=== PATIENT | female | born 1975 | race African-American/Black ===

== ENCOUNTER 2017-08-03 06:49 | Inpatient (IN) | payer OTHER ==
[~2017-08-03] VITALS: Ht 167.6 cm; Wt 87.1 kg
[2017-08-03] VITALS (17 sets, daily range): BP systolic 118–149; BP diastolic 72–100
[2017-08-03] MEDS ORDERED: ceFAZolin sod 2 GM in D5W 110 ML IVPB ONE (07:00)
[2017-08-03] MEDS ORDERED: ceFAZolin 2gm/50ml Premix 50 ML IVPB ONE (07:00)
[2017-08-03] MEDS ORDERED: Surgicel 4in x 8in TOPIC ONE (07:04)
[2017-08-03] MEDS ORDERED: Thrombin 5000 units TOPIC ONE (07:04)
[2017-08-03] MEDS ORDERED: Bupivacaine w/Epi 0.5% 30ml Vial INJ ONE (07:05)
[2017-08-03] MEDS ORDERED: Gelfoam Absorbable 1gm powder pkt TOPIC ONE (07:05)
[2017-08-03] MEDS ORDERED: Bacitracin 50000 Units Vial ONE (07:05)
[2017-08-03] MEDS ORDERED: Thrombin 5000 units spray kit TOPIC ONE (07:05)
[2017-08-03] MEDS ORDERED: NKM (07:51)
[2017-08-03] MEDS ORDERED: Zemuron 50mg/5ml Inj IV ONE (08:00)
[2017-08-03] MEDS ORDERED: NS Irrig 1000ml ONE (08:00)
[2017-08-03] MEDS ORDERED: fentaNYL 100 mcg/2 mL IV ONE (08:00)
[2017-08-03] MEDS ORDERED: Midazolam 2mg/2ml Inj ONE (08:00)
[2017-08-03] MEDS ORDERED: Esmolol 100mg/10ml Inj ONE (08:00)
[2017-08-03] MEDS ORDERED: Sodium Chloride 10ml vial INJ ONE (08:00)
[2017-08-03] MEDS ORDERED: Propofol 1,000mg/ 100ml btl IV ONE (08:00)
[2017-08-03] MEDS ORDERED: Sterile Water Irrig 1000ml IRRIG ONE (08:00)
[2017-08-03] MEDS ORDERED: LR 1000ml ONE (08:00)
[2017-08-03] MEDS ORDERED: Metoprolol 5mg/5ml Inj ONE (08:00)
[2017-08-03] MEDS ORDERED: Labetalol 5mg/ml 20ml vial IV ONE (08:00)
[2017-08-03] MEDS ORDERED: Lidocaine 1% MPF 10mg/ml 5ml ONE (08:00)
[2017-08-03] MEDS ORDERED: Vancomycin 1gm inj IVPB ONE (09:48)
[2017-08-03] MEDS ORDERED: LR 1000ml 1,000 ML IVLG SCH (10:51)
--- NOTE | 2017-08-03 10:58 | Anethesia Preoperative Eval ---
Anesthesia Pre-op PMH/ROS General Date of Evaluation: Aug 03, 2017 Time of Evaluation: 08:00 Anesthesiologist: Parish ASA Score: ASA 1 Mallampati Score Class I : Soft palate, uvula, fauces, pillars visible Class II: Soft palate, uvula, fauces visible Class III: Soft palate, base of uvula visible Class IV: Only hard plate visible Mallampati Classification: Class II Surgeon: Shannan Diagnosis: Herniated cervical disc, radiculopathy Surgical Procedure: ACDF C5-6, C6-7 Family History: no anesthesia problems Allergies: Coded Allergies: ASPIRIN (Verified Allergy, Unknown, 09/28/13) Medications: see eMAR Past Medical History Cardiovascular: Denies: HTN, CAD, CO, valve dz, arrhythmia, other Pulmonary: Denies: asthma, COPD, KELIN, other Gastrointestinal/Genitourinary: Denies: GERD, CRI, ESRD, other Neurologic/Psychiatric: Denies: dementia, CVA, depression/anxiety, TIA, other Endocrine: Denies: DM, hypothyroidism, steroids, other HEENT: Denies: cataract (L), cataract (R), glaucoma, [place] (L), [place] (R), other Hematology/Immune: Denies: anemia, DVT, bleeding disorder, other Musculoskeletal/Integumentary: Denies: OA, RA, DJD, DDD, edema, other PMH Narrative: Denies significant PMH PSxH Narrative: ALESSANDRO, eye surgery, breast reduction Anesthesia Pre-op Phys. Exam Physician Exam Last Vital Signs Date Time Temp Pulse Resp B/P (MAP) Pulse Ox O2 Delivery O2 Flow Rate FiO2 08/03/17 07:51 98.2 80 18 131/86 96 Room Air Constitutional: NAD Neurologic: CN 2-12 intact Cardiovascular: RRR, no M/R/G Respiratory: CTA Gastrointestinal: S/NT/ND Airway Exam Mallampati Score: Class II MO: full ROM: full Teeth: intact Anesthesia Pre-op A/P Labs WNL: Urine Test Test 08/03/17 07:10 Urine HCG, Qualitative Negative Studies Pre-op Studies: EKG - NSR Risk Assessment & Plan Assessment: Healthy female for ACDF vs disc replacement C5-6, C6-7 Plan: GETA,. [place] scope intubation, SedLine monitor Status Change Before Surgery: No Pre-Antibiotics Drug: Ancef Given Within 1 Hr of Incision: Yes Time Given: 08:30 VIC GONZALEZ M.D. Aug 03, 2017 10:58
--- NOTE | 2017-08-03 10:59 | Immediate Post-Op Evaluation ---
Immediate Post-Op Evalulation Immediate Post-Op Evalulation Procedure: ACDF C5-6, C6-7 Date of Evaluation: Aug 03, 2017 Time of Evaluation: 12:15 IV Fluids: 1550 Estimated Blood Loss: 130 Urinary Output: 350 Blood Pressure Systolic: 140 Blood Pressure Diastolic: 90 Pulse Rate: 100 Respiratory Rate: 20 O2 Sat by Pulse Oximetry: 100 Pain Score (1-10): 3 Nausea: No Vomiting: No Complications No complication Patient Status: awake, patent, extubated, none Hydration Status: adequate Drug: Ancef Given Within 1 Hr of Incision: Yes Time Given: 08:30 VIC GONZALEZ M.D. Aug 03, 2017 10:59
[2017-08-03] MEDS ORDERED: Hydromorphone 0.5mg/0.5ml inj IVP PRN (11:00)
[2017-08-03] MEDS ORDERED: LORazepam Inj 2mg/ml 1ml IV PRN (11:00)
[2017-08-03] MEDS ORDERED: DiphenhydrAMINE 50mg/ml Inj IVP PRN (11:00)
[2017-08-03] MEDS ORDERED: Meperidine 25mg/0.5ml Inj (FOR RIGORS ONLY) IV PRN (11:00)
[2017-08-03] MEDS ORDERED: traMADol 50mg tab ORAL PRN (11:45)
--- NOTE | 2017-08-03 11:53 | Pre-Procedure Note/Attestation ---
Pre-Procedure Note/Attestation Complete Prior to Procedure Procedure Narrative: c567 acdf vs, adr, vs hybrid Indications for Procedure Pre-Operative Diagnosis: c56 discopathy, c67 HNP Attestation I attest that I discussed the nature of the procedure; its benefits; risks and complications; and alternatives (and the risks and benefits of such alternatives ), prior to the procedure, with the patient (or the patient's legal dental sales representative). I attest that, if there was a reasonable possibility of needing a blood transfusion, the patient (or the patient's legal dental sales representative) was given the [facility] standardized written summary, pursuant to the Ace Julian Blood Safety Act ([place] Health and Safety Code # 1645, as amended). I attest that I re-evaluated the patient just prior to the surgery and that there has been no change in the patient's H&P, except as documented below: SUSHILA CONLEY Aug 03, 2017 11:53
--- NOTE | 2017-08-03 11:55 | Brief Operative Note ---
Immediate Post Operative Note Operative Note Pre-op Diagnosis: c56 discopathy, c67 HNP Procedure: ACDF c5-7. partial corpectomy c7 Post-op Diagnosis: same as pre-op Findings: consistent w/pre-op dx studies Surgeon: feliciano Conservation Planner: martir Anesthesiologist: alyssa Anesthesia: general Specimen: none Complications: none Condition: stable Fluids: 1500 Estimated Blood Loss: volume - 130 Drains: none Implant(s) used?: Yes - cervical plate and pook (alphatek) SUSHILA CONLEY Aug 03, 2017 11:54
[2017-08-03] MEDS ORDERED: Naloxone 0.4mg/ml Inj IVP PRN (12:16)
[2017-08-03] MEDS ORDERED: LR 1000ml 1,000 ML IV SCH (12:51)
--- NOTE | 2017-08-03 13:35 | Diagnostic Imaging Report ---
Indication: PAIN, intraoperative Technique: Digital intraoperative images Comparison: None Findings: Initial image demonstrates a needle overlying the C6 vertebral body. Subsequent images demonstrate surgical tool projected at the expected level of the C6-7 disc. Subsequent images demonstrate anterior fusion with placement of disc spacers from C5-C7. Impression: Intraoperative imaging, as described
[2017-08-03] MEDS ORDERED: Norco 7.5mg/325mg tab ORAL PRN ×2 (14:30)
[2017-08-03] MEDS ORDERED: HYDROmorphone 1mg/ml Carpuject SUBQ PRN (14:30)
[2017-08-03] MEDS ORDERED: Metoclopramide 10mg/2ml Inj IVP PRN (14:30)
[2017-08-03] MEDS ORDERED: Norco 5mg/325mg tab ORAL PRN (14:30)
[2017-08-03] MEDS ORDERED: Milk of Magnesia 30ml Ud ORAL PRN (14:30)
[2017-08-03] MEDS: D5 1/2NS 1,000 ML IV SCH (14:41)
[2017-08-03] MEDS ORDERED: LORazepam 0.5mg tab ORAL PRN ×3 (16:00)
[2017-08-03] MEDS: ceFAZolin sod 1 GM in D5W 55 ML IV SCH (17:05)
[2017-08-03] MEDS: Docusate 100mg cap ORAL SCH (17:30)
[2017-08-03] MEDS ORDERED: D5 1/2NS 1000ml IV ONE (17:56)
[2017-08-03] MEDS: HYDROmorphone 1mg/ml Carpuject SUBQ PRN (20:04)
[2017-08-04] VITALS: BP 141/96
[2017-08-04] MEDS: ceFAZolin sod 1 GM in D5W 55 ML IV SCH ×2 (00:17→08:19)
[2017-08-04] MEDS: D5 1/2NS 1,000 ML IV SCH ×2 (00:17→11:32)
[2017-08-04] MEDS: HYDROmorphone 1mg/ml Carpuject SUBQ PRN ×7 (00:18→23:50)
[2017-08-04 04:00] VITALS: BP 141/93
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
[2017-08-04 08:00] VITALS: BP 131/83
[2017-08-04] MEDS: Docusate 100mg cap ORAL SCH ×2 (08:19→17:34)
--- NOTE | 2017-08-04 08:19 | 48 Hour Post Anesthesia Eval ---
Post Anesthesia Evaluation Procedure: ACDF C5-6, C6-7 Date of Evaluation: Aug 04, 2017 Blood Pressure Systolic: 141 0: 93 Pulse Rate: 94 Respiratory Rate: 18 Temperature (Fahrenheit): 98.5 O2 Sat by Pulse Oximetry: 94 Airway: patent Nausea: No Vomiting: No Pain Intensity: 2 Hydration Status: adequate Cardiopulmonary Status: at baseline Mental Status/LOC: patient returned to baseline Post-Anesthesia Complications: 0 Follow-up care needed: N/A - further care as per primary team DEUCE CABRALES M.D. Aug 04, 2017 08:19
--- NOTE | 2017-08-04 08:44 | Orthopedic Spine Progress Note ---
Ortho Spine - Progress Note Subjective Symptoms: c/o post-op neck pain, improved Objective Vital Signs: Last 24 Hour Vital Signs Date Time Temp Pulse Resp B/P (MAP) Pulse Ox O2 Delivery O2 Flow Rate FiO2 08/04/17 08:19 94 18 94 08/04/17 08:00 98.4 103 14 131/83 99 Room Air 08/04/17 04:00 98.5 94 18 141/93 94 Room Air 08/04/17 00:00 98.1 96 18 141/96 95 Room Air 08/03/17 20:00 98.0 91 19 149/100 100 Nasal Cannula 2.0 08/03/17 17:46 90 19 124/87 98 Nasal Cannula 3.0 08/03/17 16:46 97.9 90 18 130/72 97 Nasal Cannula 3.0 08/03/17 15:46 93 18 123/72 96 Nasal Cannula 3.0 08/03/17 15:40 97.9 08/03/17 14:46 96 18 133/86 97 Nasal Cannula 3.0 08/03/17 13:30 97.4 96 18 131/78 97 Nasal Cannula 3.0 08/03/17 13:22 97.4 93 16 121/83 100 Nasal Cannula 3.0 08/03/17 13:10 92 17 121/83 100 Nasal Cannula 3.0 08/03/17 13:00 92 20 135/86 100 Nasal Cannula 3.0 08/03/17 12:50 91 15 126/78 100 Nasal Cannula 3.0 08/03/17 12:43 97.4 08/03/17 12:43 97.4 08/03/17 12:40 92 18 118/75 100 Nasal Cannula 3.0 08/03/17 12:30 94 14 119/78 100 Nasal Cannula 3.0 08/03/17 12:20 90 18 125/72 100 Nasal Cannula 3.0 08/03/17 12:10 92 17 128/78 100 Simple Mask 6.0 08/03/17 12:08 100 20 100 08/03/17 12:05 100 16 128/80 100 Simple Mask 6.0 08/03/17 12:00 97.0 101 15 129/83 100 Simple Mask 6.0 Wound: intact Drains: none Neuro Status: normal Assessment Procedure Performed: ACDF c5-7. partial corpectomy c7 Plan Plan: PT, pain management, discharge plan SUSHILA CONLEY Aug 04, 2017 08:44
--- NOTE | 2017-08-04 09:15 | Operative Note - Dictated ---
DATE OF OPERATION: 08/03/2017 SURGEON: Chris Campbell M.D. HAND BULLDOZER: Severiano Nice M.D. ANESTHESIOLOGIST: Ace Lugo M.D. ANESTHESIA TYPE: General endotracheal anesthesia. PREOPERATIVE DIAGNOSES: 1. Diskopathy C5-C6. 2. Cervical disk extrusion with right upper extremity radiculopathy C6-C7. POSTOPERATIVE DIAGNOSES: 1. Diskopathy C5-C6. 2. Cervical disk extrusion with right upper extremity radiculopathy C6-C7. PROCEDURES: 1. Anterior cervical diskectomy and fusion of C5, C6, and C7. 2. Partial corpectomy of superior portion of C7. 3. PEEK interbody devices for fusion purposes. 4. Use of local autograft and allograft (Bacterin bone). 5. Anterior instrumentation using Alphatec plate. 6. Use of fluoroscopy. 7. Use of operating microscope. 8. Neurodiagnostic monitoring. ESTIMATED BLOOD LOSS: 150 mL. COMPLICATIONS: None. Findings: Extruded disk fragments, right side, C6-C7. This necessitated partial corpectomy of the superior portion of C7, which ultimately did not allow for safe placement of an artificial disk. After a trial was placed, there was notable toggle and instability and potential loosening of the disk replacement. Indication: The patient is a very pleasant woman with fairly significant and intractable pain radiating to right upper extremity. After having failed conservative care, surgical intervention was recommended. The patient elected to proceed. Risk Note: The patient was explained in detail the risks and benefits of surgery to include, but not be limited to those of bleeding, infection, damage to nerves, vessels, tendons, anesthetic risk, allergic reaction, aspiration, possibly , possible risk of hardware failure, and possible risk of pseudoarthrosis were discussed. The patient understood and wished to proceed. Operative Procedure In Detail: The patient was taken to the operative suite. After general endotracheal anesthesia was obtained, Oneal catheter was placed. She was positioned supine on to a radiolucent table. The neck was prepped and draped in usual sterile fashion. At this point, under fluoroscopic guidance, C6 level was identified. The skin was marked and infiltrated with Marcaine with epinephrine. Incision was carried down transversely at the C6 level. It was taken down through subcutaneous and the platysma, which was split perpendicular to the fibers. A blunt dissection was carried down from the medial aspect of the sternocleidomastoid along to the prevertebral fascia. Extensive scarring was encountered. The C6-C7 disk space was identified and needle was placed. A self-retaining retractors were put in place. [place] posts were applied. At this point, the disk was incised and a wide and radical diskectomy was performed at C6-C7 using combination of curette, Kerrison, and pituitaries. The dissection was carried out all the way to the posterior longitudinal ligament, which was removed in a piecemeal fashion. Extensive scarring was encountered on the right side consistent with chronic herniation. The microset curette was then delivered under and posterior to the vertebral body and multiple passes were made to remove the disk extrusion. As this could not be removed, the partial corpectomy of the superior end plate, right side C7 was performed and the disk extrusion was identified and removed in a piecemeal fashion. At this point, endplate preparation was achieved. The decision was made to trial the interspace for a artificial disk. Multiple passes were attempted, but could not have safe and reliable placement of the artificial disk. Due to the small strip of corpectomy, there was toggle in the trial, which made it risky for loosening down the line. At this point, the decision was made to convert to a fusion at this level. A 5 mm in height small cage footprint was chosen. It was centrally packed with Bacterin bone and the interbody fusion device was applied. Additional Bacterin bone as well as local autograft bone from the corpectomy was packed into the periphery on both the right and the left. The [place] post was removed from C7, applied into C5, and in a similar fashion widened radical diskectomy was performed. Please note that the C5-C6 level was more scarified and the disk was highly deteriorated. Therefore, a high-speed drill was used to perform partial corpectomies of the inferior portion of C5 and superior portion of C6. The posterior osteophytes were also drilled out. The ligamentum flavum was removed in a piecemeal fashion with Kerrison punches. Once satisfied with the decompression, a 6 mm trial was put into place and noted to have good fit. A 6 mm implant was packed with Bacterin bone and local autograft bone. The periphery was also packed with Bacterin bone. Once both fusion devices were applied, the appropriate size 28 mm plate was chosen, contoured, and applied. The central two screws were first drilled, standard self-drilling 14, and then the two cephalad screws and then the two distal screws. Screw placement was performed uneventfully. Please note that the left-sided screw was a rescue screw as it was close in proximity to the [place] post hole. Once satisfied with closure, meticulous hemostasis was achieved. Copious irrigation was performed. The platysma was repaired using 3-0 Vicryl and subcutaneous closure using 4-0 Vicryl. Dermabond was applied. Subsequently, the patient was awakened, extubated, and transferred to recovery room and able to move her upper and lower extremities. Please note, sponge and needle counts were correct. Neurodiagnostic monitoring remained stable. Chris Campbell M.D. DR: HERNAN JOB#: [id number] CC: SANDRA
[2017-08-04 12:00] VITALS: BP 114/74
[2017-08-04 16:00] VITALS: BP 129/80
[2017-08-04] MEDS ORDERED: Tubing IV Secondary IV ONE (16:23)
[2017-08-04] MEDS ORDERED: oxyCODONE 5mg IR tab ORAL ONE (18:00)
[2017-08-04 20:00] VITALS: BP 142/72
[2017-08-05] VITALS: BP 138/70
--- NOTE | 2017-08-05 01:15 | Progress Note ---
DATE: 08/04/2017 ACUTE PAIN MANAGEMENT PHYSICIAN PROGRESS NOTE Medications: Medication administration record reviewed. Medications include Tylenol, Mylanta, Cepacol, Benadryl, Colace, Dilaudid, Ativan, milk of magnesia, Reglan, Narcan, Zofran, Roxicodone, and Protonix. LABORATORY STUDIES: No interval laboratory studies. OBJECTIVE: Vital Signs: Pulse 94, afebrile, respirations 16, blood pressure 114/74, and oxygen saturation 96% on room air. I spent over sixty minutes in conversation today. I saw the patient at the bedside after discussion with the nurse RN, Jill. I discussed the case with the surgeon, Dr. Campbell. The patient has been doing quite well after her cervical spine surgery. She continues to require breakthrough Dilaudid injections fairly regularly. I did encourage her to start using the oxycodone since she has not had any nausea symptoms and has been slowly advancing her diet. She still has a considerable sore throat with swallowing, but appears non-toxic. I have asked the nurse to place more Cepacol lozenges at the bedside for topical sore throat complaints. The patient will continue advancing her diet as tolerated. I have ordered a dose of oxycodone in the dinner tonight and left a prescription for outpatient usage. I did encourage out of bed for DVT prophylaxis. Sequential compression pneumatic devices remain in place as well for mechanical DVT prophylaxis. The patient is a smoker. I did once again camp head counselor the patient to stop smoking. I encouraged aggressive use of incentive spirometer as she already admits the phlegm expectoration over the past 24 hours. The patient has been voiding urine. She denies any shortness of breath or chest pain. I will discontinue her IV fluids and Hep-Lock her IV. I will also discontinue her nasal cannula oxygen in order to encourage movement out of bed. She is voiding urine well. Since she is ambulatory, I will increase her laxative usage since she may develop significant opioid-induced constipation on significant Dilaudid and oxycodone usage over the next 24 hours. I have ordered Senokot p.o. b.i.d. Jake Almeida M.D. DR: Salena JOB#: [id number] CC:
[2017-08-05] MEDS: HYDROmorphone 1mg/ml Carpuject SUBQ PRN (03:45)
[2017-08-05 04:00] VITALS: BP 128/66
[2017-08-05] MEDS: oxyCODONE 5mg IR tab ORAL PRN ×4 (06:07→16:02)
[2017-08-05 07:59] VITALS: BP 128/80
[2017-08-05] MEDS: Docusate 100mg cap ORAL SCH (09:21)
[2017-08-05 11:48] VITALS: BP 117/70
--- NOTE | 2017-08-05 15:23 | General Progress Note ---
Assessment/Plan Assessment/Plan 1. Diskopathy C5-C6. 2. Cervical disk extrusion with right upper extremity radiculopathy C6-C7. 3. Anterior cervical diskectomy and fusion of C5, C6, and C7. 4. Partial corpectomy of superior portion of C7. PLAN 1. incentive spirometry 2. Lovenox 3. PT evaluation and therapy 4. Hydration 5. Pain management 6. discharge today Subjective Allergies: Coded Allergies: ASPIRIN (Verified Allergy, Unknown, 09/28/13) Subjective asked to follow medically Objective Last 24 Hour Vital Signs Date Time Temp Pulse Resp B/P (MAP) Pulse Ox O2 Delivery O2 Flow Rate FiO2 08/05/17 11:48 99.0 88 20 117/70 94 Nasal Cannula 2.0 08/05/17 07:59 98.5 99 20 128/80 95 Room Air 08/05/17 04:00 98.4 95 18 128/66 98 Room Air 08/05/17 00:00 98.1 100 17 138/70 96 Room Air 08/04/17 20:00 98.2 98 18 142/72 97 Room Air 08/04/17 16:00 98.1 107 16 129/80 95 Room Air Intake and Output 08/05/17 08/06/17 19:00 07:00 Intake Total 840 ml Output Total 450 ml Balance 390 ml Intake Oral 840 ml Output Urine Total 450 ml # Voids 1 Height (Feet): 5 Height (Inches): 6.00 Weight (Pounds): 192 Objective WDWN NAD clear breath sounds bilaterally without rhonchi or wheeze [id number] without MRG NABS nontender no HSM no CCE nonfocal ANDREA BARDALES Aug 05, 2017 15:23
--- NOTE | 2017-08-05 16:15 | Progress Note ---
DATE: 08/05/2017 ACUTE PAIN MANAGEMENT PHYSICIAN PROGRESS NOTE Medications: Medication administration record reviewed. Medication include Senokot, Protonix, oxycodone, Zofran, subcutaneous Dilaudid, Narcan, milk of magnesia, Ativan, Colace, Benadryl, Mylanta, and Tylenol. LABORATORY STUDIES: No interval laboratory studies. OBJECTIVE: Vital Signs: Within normal limits. Afebrile. Pulse 95, respirations 18, blood pressure 128/56, and oxygen saturation 98% on room air. I spent over 60 minutes in consultation today. I saw the patient at the bedside after discussion with the nurse RN, Low. I discussed the case with the surgeon Dr. Campbell. The patient has been ambulating in and out of bed without assistance to the restroom and around the room. She continues to wear her [place] collar, which is providing good mechanical support after her neck fusion surgery. The pain levels will be considerable and she has still been requesting frequent doses of the breakthrough subcutaneous Dilaudid. At this point, on postoperative day #2, in order to help expedite hospital discharge, I have asked the nurse to bolus her with the oxycodone instant release 10 mg tablet now which we will continue every three hours. I will discontinue the parental narcotics and I left a prescription for 50 tablets of Percocet 10/325 for outpatient usage. The patient does not appear to be anxious and shows no evidence for oversedation. I would continue the Cepacol topical lozenges for sore throat complaints. The patient does complain of radiating pain to her left greater than right shoulders. I reassured the patient that these sensations are normal after neck fusion surgery and I did encourage continued ambulation for DVT prophylaxis. The patient is afebrile and has normal vital signs. She is tolerating advancing diet albeit slowly. I did reassure the patient that the symptoms should improve and I would expect the patient to be discharged home today once cleared by the surgeon, Dr. Campbell. Romi Chacon JOB#: [id number] CC:
[2017-08-05] MEDS ORDERED: PERCOCET 10-321 EACH ORAL (16:35)
--- NOTE | 2017-08-05 17:24 | Orthopedic Spine Progress Note ---
Ortho Spine - Progress Note Subjective Symptoms: c/o post-op neck pain, improved Objective Vital Signs: Last 24 Hour Vital Signs Date Time Temp Pulse Resp B/P (MAP) Pulse Ox O2 Delivery O2 Flow Rate FiO2 08/05/17 11:48 99.0 88 20 117/70 94 08/05/17 07:59 98.5 99 20 128/80 95 Room Air 08/05/17 04:00 98.4 95 18 128/66 98 Room Air 08/05/17 00:00 98.1 100 17 138/70 96 Room Air 08/04/17 20:00 98.2 98 18 142/72 97 Room Air I&O: Intake and Output 08/05/17 08/06/17 19:00 07:00 Intake Total 840 ml Output Total 450 ml Balance 390 ml Intake Oral 840 ml Output Urine Total 450 ml # Voids 1 Wound: clean, intact Drains: none Neuro Status: normal Assessment Procedure Performed: ACDF c5-7. partial corpectomy c7 Plan Plan: PT, discharge to home SUSHILA CONLEY Aug 05, 2017 17:24
--- NOTE | 2017-08-06 09:49 | Discharge Summary ---
Discharge Summary Hospital Course Date of Admission Aug 03, 2017 at 06:49 Date of Discharge Aug 05, 2017 at 17:40 Admitting Diagnosis HPI Catarina Osuna is a 42 year old female who was admitted on Aug 03, 2017 at 06 :49 for Cervical Disc Herniation Hospital Course [id number] Discharge Discharge Disposition Patient was discharged to Home (01) Discharge Diagnoses: Missy Silverman NP Aug 06, 2017 09:49
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
== END 2017-08-05 17:40 | disposition home or self-care (01) | DRG 473 ==
LOC: SDSOVERFLO 06:49 → 3E 13:52
PROC: 0RG2070 Fusion of 2 or more Cervical Vertebral Joints with Autologous Tissue Substitute, Anterior Approach, Anterior Column, Open Approach (ICD-10-PCS; principal; 2017-08-03 08:00)
PROC: 0RG20A0 Fusion of 2 or more Cervical Vertebral Joints with Interbody Fusion Device, Anterior Approach, Anterior Column, Open Approach (ICD-10-PCS; principal; 2017-08-03 08:00)
PROC: 0RB30ZZ Excision of Cervical Vertebral Disc, Open Approach (ICD-10-PCS; principal; 2017-08-03 08:00)
DX: M50.122 Cervical disc disorder at C5-C6 level with radiculopathy (principal); G62.9 Polyneuropathy, unspecified; E66.9 Obesity, unspecified; V89.2XXS Person injured in unspecified motor-vehicle accident, traffic, sequela; F17.200 Nicotine dependence, unspecified, uncomplicated; Z88.6 Allergy status to analgesic agent; R20.9 Unspecified disturbances of skin sensation
CPT/HCPCS: 36415; 72040; 76001; 81025; 86850; 86900; 86901; 87081; 94003; 94150; J2180; J2250; J2405

== ENCOUNTER 2017-08-22 08:32 | Emergency (ER) | payer MEDICAID, OTHER ==
[~2017-08-22] VITALS: Ht 167.6 cm; Wt 86.2 kg
[~2017-08-22 08:32] MED LIST: NKM; PERCOCET 10-321 EACH ORAL
[2017-08-22] MEDS ORDERED: PERCOCET 10-321 EACH ORAL (08:54)
[2017-08-22] MEDS ORDERED: Morphine Sulfate 4mg/ml Inj IM ONE (09:00)
[2017-08-22 09:08] VITALS: BP 106/72
[2017-08-22 09:13] VITALS: BP 106/72
--- NOTE | 2017-08-22 09:42 | Emergency Room Report ---
History of Present Illness General Chief Complaint: Pain Source: Patient Present Illness HPI Is a 42-year-old female presented after increased neck pain. Patient reported having recent surgery. She stated that she had run out of pain medications. Patient reported having increased pain to her surgical area. She had been wearing a cervical collar. Patient was noted to have no fever. The patient stated that she had an appointment with her orthopedic physician in the following day. She denied any bowel or bladder dysfunction. Allergies: Coded Allergies: ASPIRIN (Verified Allergy, Unknown, 09/28/13) Patient History Past Medical History: see triage record Reviewed Nursing Documentation: PMH: Agreed, PSxH: Agreed Nursing Documentation-PMH Hx Cardiac Problems: No Hx Cancer: No Hx Gastrointestinal Problems: No Hx Neurological Problems: No Review of Systems All Other Systems: negative except mentioned in HPI Physical Exam Vital Signs Date Time Temp Pulse Resp B/P (MAP) Pulse Ox O2 Delivery O2 Flow Rate FiO2 08/22/17 08:37 97.9 95 20 106/72 96 Room Air General Appearance: well appearing, no apparent distress, alert, GCS 15, non- toxic Head: normocephalic, atraumatic ENT: hearing grossly normal, normal voice Neck: supple, limited range of motion, other - cervical anterior scar healing without erythema or exudate Respiratory: no respiratory distress, speaking full sentences Cardiovascular #1: normal peripheral pulses, regular rate, rhythm, no edema Gastrointestinal: normal bowel sounds, non tender, soft Musculoskeletal: normal inspection, back normal, digits/nails normal, gait/ station normal, no calf tenderness Neurologic: normal inspection, alert, oriented x3, responsive, rivet hole puncher III-XII nml as tested, normal gait Psychiatric: mood/affect normal Skin: normal inspection, no rash Medical Decision Making Diagnostic Impression: Primary Impression: Post-op pain ER Course Patient presented for neck pain.Differential diagnosis included vertebral artery dissection, myocardial infarction, cervical fracture, arthritis, spondylolithises. Patient's benign exam and does not appear to require any further imaging or laboratory testing at this time. The patient appears to have postsurgical pain. The patient does not have any evidence of neurologic impairment at this time. The patient is given prescription for pain medications and advised followup. She is advised to return if she began having fever numbness or weakness to her extremities or other concerns Last Vital Signs Date Time Temp Pulse Resp B/P (MAP) Pulse Ox O2 Delivery O2 Flow Rate FiO2 10/8/17 09:13 97.9 72 20 106/72 96 Room Air Status: improved Disposition: HOME, SELF-CARE Condition: Stable Scripts Oxycodone Hcl/Acetaminophen 10-325 Mg Tablet (PERCOCET 10-325 MG TABLET*) 1 Each Tablet 1 TAB ORAL Q6H Y for For Pain, #15 TAB 0 Refills Prov: Terrence Barnes 08/22/17 Referrals: NON PHYSICIAN (PCP) Patient Instructions: Cervical Fusion Terrence Barnes Aug 22, 2017 09:42
== END 2017-08-22 09:14 | disposition home or self-care (01) ==
LOC: EMR 08:50
DX: G89.18 Other acute postprocedural pain (principal); M54.2 Cervicalgia
CPT/HCPCS: 96372; 99284; J2270

== ENCOUNTER 2018-05-17 22:38 | Emergency (ER) | payer MEDICAID ==
[~2018-05-17] VITALS: Ht 167.6 cm; Wt 86.2 kg
[2018-05-17 22:50] VITALS: BP 148/77
--- NOTE | 2018-05-17 23:25 | Emergency Room Report ---
History of Present Illness General Chief Complaint: Neck pain Source: Patient Present Illness HPI Patient 42-year-old female presented after increased the patient reports having pain to her neck. This of been present since her surgery which is approximately 4 months ago. The pain was similar in quality and nature. The patient been previously taking oxycodone.cough and nasal congestion. Patient reports having symptoms for the past 2 days. Patient was having increased associated headache. Patient prior surgery on her neck and had previous episodes of neuropathy. She reports having continued neck discomfort. She denies any change in her numbness or weakness. The patient was having increased nasal congestion. She denies taking inhalers. She denies smoking. Allergies: Coded Allergies: ASPIRIN (Verified Allergy, Unknown, 09/28/13) Nut Tree (Verified Allergy, Unknown, 05/17/18) Patient History Last Menstrual Period: hysterectomy 2015 Reviewed Nursing Documentation: PMH: Agreed; PSxH: Agreed Nursing Documentation-PMH Hx Cardiac Problems: No Hx Cancer: No Hx Gastrointestinal Problems: No Hx Neurological Problems: No - 2 cervical spine fushions 07/2017 Review of Systems All Other Systems: negative except mentioned in HPI Physical Exam Vital Signs Date Time Temp Pulse Resp B/P (MAP) Pulse Ox O2 Delivery O2 Flow Rate FiO2 05/17/18 22:45 98.5 103 16 148/77 95 Room Air 98.4 General Appearance: well appearing, no apparent distress, alert, GCS 15 Head: normocephalic, atraumatic ENT: hearing grossly normal, normal voice, other - nasal congestion, left nare Neck: full range of motion, supple Respiratory: no respiratory distress, speaking full sentences Cardiovascular #1: normal inspection, normal peripheral pulses, regular rate, rhythm Gastrointestinal: normal inspection Musculoskeletal: normal inspection, back normal, no calf tenderness Neurologic: normal inspection, alert, oriented x3, responsive, risk and insurance manager III-XII nml as tested, normal gait Psychiatric: normal inspection, judgement/insight normal, mood/affect normal Skin: no rash Medical Decision Making Diagnostic Impression: Primary Impression: Chronic pain ER Course Patient presented for cough. Differential diagnosis included but was not limited to bronchitis, pneumonia, pulmonary embolism, pericarditis, asthma, foreign body. Patient has a benign exam and does not appear to require any further imaging or laboratory testing at this time. The patient is given breathing treatment as well as inhaler. The patient was given the prescription for pain medications as well as inhaler.The patient is advised to follow up with primary care doctor in 1-2 days. Patient is advised to return if any worsening condition or if any changes in status that are concerning. This report is dictated with Asterisk second miller software which may occasionally lead to discrepancies related to use of this software. Last Vital Signs Date Time Temp Pulse Resp B/P (MAP) Pulse Ox O2 Delivery O2 Flow Rate FiO2 05/17/18 22:45 98.5 103 16 148/77 95 Room Air 98.4 Status: improved Disposition: HOME, SELF-CARE Condition: Stable Scripts Albuterol Sulfate* (ALBUTEROL SULFATE MDI*) 8.5 Gm Hfa.aer.ad 2 PUFF INH Q6H, #1 EA 0 Refills Prov: Terrence Barnes MD 05/18/18 Oxycodone HCl/Acetaminophen (Percocet 10-325 mg Tablet) 1 Each Tablet 1 EACH PO EVERY 4 HOURS, #10 TAB Prov: Terrence Barnes MD 05/18/18 Azithromycin* (ZITHROMAX*) 250 Mg Tablet 250 MG ORAL DAILY, #6 TAB 0 Refills Take two tables once daily for 1 day, then one tablet once daily for 4 days. Prov: Terrence Barnes MD 05/18/18 Terrence Barnes MD May 17, 2018 23:25
[2018-05-17] MEDS ORDERED: Albuterol/Ipratropium 3ml neb HHN ONE (23:30)
[2018-05-17] MEDS ORDERED: Acetaminophen 500mg (ES) tab ORAL ONE (23:30)
[2018-05-18] MEDS ORDERED: PERCOCET 10-321 EAC1 PO (00:11)
[2018-05-18] MEDS ORDERED: ALBUTEROL SULF8.5 GM INH (00:11)
[2018-05-18] MEDS ORDERED: ZITHROMAX250 MG ORAL (00:11)
[2018-05-18] MEDS ORDERED: Oxymetazoline 0.05% Na Spray 30ml NASAL ONE (00:15)
[2018-05-18] MEDS ORDERED: Azithromycin 250mg tab ORAL ONE (00:30)
[2018-05-18 00:32] VITALS: BP 0/0
== END 2018-05-18 00:35 | disposition home or self-care (01) ==
LOC: EMR 23:24
DX: G89.29 Other chronic pain (principal); M54.2 Cervicalgia; Z98.1 Arthrodesis status; Z88.6 Allergy status to analgesic agent; Z91.018 Allergy to other foods; R05 Cough
CPT/HCPCS: 94640; 99284; Q0144; J7620

== ENCOUNTER 2018-08-09 10:31 | Inpatient (IN) | payer OTHER ==
[2018-08-09] VITALS (12 sets, daily range): BP systolic 113–131; BP diastolic 57–88
[~2018-08-09] VITALS: Ht 167.6 cm; Wt 95.7 kg
[~2018-08-09 10:31] MED LIST changes: +ALBUTEROL SULF8.5 GM INH; +Midazolam 2mg/2ml Inj ONE; +PERCOCET 10-321 EAC1 PO; +Phenylephrine 10mg/ml Vial ONE; +Propofol 200mg/20ml IV ONE; +ZITHROMAX250 MG ORAL; +ceFAZolin sod 1 GM in D5W 55 ML IVPB ONE; +fentaNYL 100 mcg/2 mL IV ONE
[2018-08-09] MEDS ORDERED: EPINEPHrine 1mg/1ml Amp ONE (10:45)
[2018-08-09] MEDS ORDERED: Bacitracin Oint 15gm Tube TOPIC ONE (10:45)
[2018-08-09] MEDS ORDERED: Vancomycin 1gm inj IVPB ONE (10:45)
[2018-08-09] MEDS ORDERED: Thrombin 5000 units spray kit TOPIC ONE (10:46)
[2018-08-09] MEDS ORDERED: Bupivacaine 0.5% Inj 30 ml vial INJ ONE (10:46)
[2018-08-09] MEDS ORDERED: Thrombin 5000 units TOPIC ONE ×2 (10:46→10:47)
[2018-08-09] MEDS ORDERED: Bacitracin 50000 Units Vial ONE (10:47)
[2018-08-09] MEDS ORDERED: Gelfoam Absorbable 1gm powder pkt TOPIC ONE (10:48)
--- NOTE | 2018-08-09 11:48 | Pre-Procedure Note/Attestation ---
Pre-Procedure Note/Attestation Complete Prior to Procedure Procedure Narrative: psf c5-7, r c56 foraminotomy Indications for Procedure Pre-Operative Diagnosis: SP c5-6 acdf with pseudoarthrosis Attestation I attest that I discussed the nature of the procedure; its benefits; risks and complications; and alternatives (and the risks and benefits of such alternatives ), prior to the procedure, with the patient (or the patient's legal floor representative). I attest that, if there was a reasonable possibility of needing a blood transfusion, the patient (or the patient's legal floor representative) was given the [facility] standardized written summary, pursuant to the [place] Blood Safety Act ([place] Health and Safety Code # 1645, as amended). I attest that I re-evaluated the patient just prior to the surgery and that there has been no change in the patient's H&P, except as documented below: Chris Campblel MD Aug 09, 2018 11:48
[2018-08-09] MEDS ORDERED: LR 1000ml ONE (12:00)
[2018-08-09] MEDS ORDERED: Labetalol 5mg/ml 20ml vial IV ONE (12:00)
[2018-08-09] MEDS ORDERED: NS Irrig 1000ml ONE (12:00)
[2018-08-09] MEDS ORDERED: Propofol 1,000mg/ 100ml btl IV ONE (12:00)
[2018-08-09] MEDS ORDERED: Sterile Water Irrig 1000ml IRRIG ONE (12:00)
[2018-08-09] MEDS ORDERED: Gelfoam Size TOPIC ONE (12:12)
[2018-08-09] MEDS ORDERED: Morphine Sulfate 10mg/ml Inj ONE (12:54)
[2018-08-09] MEDS ORDERED: Zemuron 50mg/5ml Inj IV ONE (12:57)
[2018-08-09] MEDS ORDERED: Sodium Chloride 10ml vial INJ ONE (12:57)
[2018-08-09] MEDS: Thrombin 5000 units TOPIC ONE ×2 (13:35→15:55)
[2018-08-09] MEDS ORDERED: LR 1000ml 1,000 ML IVLG SCH (13:44)
--- NOTE | 2018-08-09 13:44 | Anethesia Preoperative Eval ---
Anesthesia Pre-op PMH/ROS General Date of Evaluation: Aug 09, 2018 Time of Evaluation: 11:43 Anesthesiologist: Tosin ASA Score: ASA 2 Mallampati Score Class I : Soft palate, uvula, fauces, pillars visible Class II: Soft palate, uvula, fauces visible Class III: Soft palate, base of uvula visible Class IV: Only hard plate visible Mallampati Classification: Class II Surgeon: Shannan Diagnosis: Cervical radiculopathy Surgical Procedure: Posterior laminotomy with interbody fusion C5-C7 Anesthesia History: none Family History: no anesthesia problems Allergies: Coded Allergies: ASPIRIN (Verified Allergy, Unknown, 09/28/13) Nut Tree (Verified Allergy, Unknown, 05/17/18) Past Medical History Cardiovascular: Denies: HTN, CAD, DC, valve dz, arrhythmia, other Pulmonary: Denies: asthma, COPD, KELIN, other Gastrointestinal/Genitourinary: Reports: GERD; Denies: CRI, ESRD, other Neurologic/Psychiatric: Reports: other - chronic pain; Denies: dementia, CVA, depression/anxiety, TIA Endocrine: Denies: DM, hypothyroidism, steroids, other HEENT: Denies: cataract (L), cataract (R), glaucoma, [place] (L), [place] (R), other Hematology/Immune: Reports: anemia - mild; Denies: DVT, bleeding disorder, other Musculoskeletal/Integumentary: Denies: OA, RA, DJD, DDD, edema, other Other: obesity PMH Narrative: as above PSxH Narrative: C5-C7 ACDF hysterectomy Anesthesia Pre-op Phys. Exam Physician Exam Last Vital Signs Date Time Temp Pulse Resp B/P (MAP) Pulse Ox O2 Delivery O2 Flow Rate FiO2 08/09/18 10:59 97.2 80 20 126/81 (96) 98 97.2 08/09/18 10:49 Room Air Constitutional: NAD Neurologic: CN 2-12 intact Cardiovascular: RRR, no M/R/G Respiratory: CTA Gastrointestinal: S/NT/ND Airway Exam Mallampati Score: Class II MO: full Neck: stiff ROM: limited Teeth: intact Dentures: no upper, no lower Anesthesia Pre-op A/P Labs see chart Studies Pre-op Studies: EKG - NSR Risk Assessment & Plan Assessment: ASA 2 Plan: GA with ETT prone position, neuromonitoring Status Change Before Surgery: No Pre-Antibiotics Drug: Ancef 2g. Given Within 1 Hr of Incision: Yes Time Given: 13:10 Paco Leahy MD Aug 09, 2018 13:44
[2018-08-09] MEDS ORDERED: fentaNYL 100 mcg/2 mL IV PRN (13:45)
[2018-08-09] MEDS ORDERED: Midazolam 2mg/2ml Inj IVP PRN (13:45)
[2018-08-09] MEDS ORDERED: Meperidine 50mg/ml Inj(FOR RIGORS ONLY) IV PRN (13:45)
[2018-08-09] MEDS ORDERED: Acetaminophen (Non formulary) 100 ML IV ONE (13:45)
[2018-08-09] MEDS ORDERED: Metoclopramide 10mg/2ml Inj IVP PRN (13:45)
[2018-08-09] MEDS ORDERED: DiphenhydrAMINE 50mg/ml Inj IVP PRN (13:45)
[2018-08-09] MEDS ORDERED: Ketorolac 30mg Inj IV PRN (13:45)
[2018-08-09] MEDS ORDERED: Neostigmine 1mg/ml 10ml Inj ONE (13:49)
[2018-08-09] MEDS ORDERED: Ketorolac 30mg Inj ONE (13:49)
[2018-08-09] MEDS ORDERED: Glycopyrrolate 0.2mg/ml 1ml Vial ONE (13:49)
--- NOTE | 2018-08-09 15:13 | Brief Operative Note ---
Immediate Post Operative Note Operative Note Pre-op Diagnosis: SP c5-6 acdf with pseudoarthrosis Procedure: c567 PSF, R c56 laminoforaminotomy Post-op Diagnosis: same as pre-op Findings: consistent w/pre-op dx studies Surgeon: cele Turf Grower: divina Anesthesiologist: joseluis Anesthesia: general Specimen: none Complications: none Condition: stable Fluids: 1L Estimated Blood Loss: volume - 100 Drains: none Implant(s) used?: Yes - spinal elements lateral mass scres Chris Campbell MD Aug 09, 2018 15:13
[2018-08-09] MEDS ORDERED: Milk of Magnesia 30ml Ud ORAL PRN ×2 (15:15→17:45)
--- NOTE | 2018-08-09 15:41 | Immediate Post-Op Evaluation ---
Immediate Post-Op Evalulation Immediate Post-Op Evalulation Procedure: C5-C7 posterior laminotomy with decompression and interbody fusion Date of Evaluation: Aug 09, 2018 Time of Evaluation: 15:40 IV Fluids: 1100 Blood Products: none Estimated Blood Loss: 50 Urinary Output: 200 Blood Pressure Systolic: 134 Blood Pressure Diastolic: 76 Pulse Rate: 82 Respiratory Rate: 20 O2 Sat by Pulse Oximetry: 99 Temperature (Fahrenheit): 97.6 Pain Score (1-10): 1 Nausea: No Vomiting: No Complications none Patient Status: reacts, patent, extubated, none Hydration Status: adequate Paco Leahy MD Aug 09, 2018 15:41
--- NOTE | 2018-08-09 16:38 | Diagnostic Imaging Report ---
INDICATION: Pain, intraoperative TECHNIQUE: Intraoperative imaging Fluoroscopy time: 21.2 seconds Total dose: 0.14498 mGym2 Total number of images: 6 COMPARISON: None FINDINGS: Intraoperative images demonstrate surgical localizer tool posterior to the C3-4 disc. Subsequent images document anterior and posterior surgical fusion of the lower cervical spine. IMPRESSION: Intraoperative imaging, as described
[2018-08-09] MEDS: D5 1/2NS 1,000 ML IV SCH (17:00)
[2018-08-09] MEDS ORDERED: HYDROmorphone 1mg/ml Carpuject SUBQ SCH (17:34)
[2018-08-09] MEDS ORDERED: Chloraseptic Spray 20mL Bottle ORAL SCH (17:34)
[2018-08-09] MEDS ORDERED: oxyCODONE 5mg IR tab ORAL PRN ×2 (17:45→18:00)
[2018-08-09] MEDS: Docusate 100mg cap ORAL SCH (17:55)
[2018-08-09] MEDS ORDERED: PCA HYDROmorphone 1mg/ml 30 ML IV PRN (18:00)
[2018-08-09] MEDS ORDERED: Chloraseptic Spray 20mL Bottle ORAL PRN (18:00)
[2018-08-09] MEDS ORDERED: oxyCODONE 15mg IR tab ORAL PRN (18:00)
[2018-08-09] MEDS: LORazepam 1mg tab ORAL SCH (19:07)
[2018-08-09] MEDS: ceFAZolin sod 1 GM in D5W 55 ML IV SCH (21:49)
[2018-08-10 00:13] VITALS: BP 118/74
--- NOTE | 2018-08-10 02:00 | Operative Note - Dictated ---
DATE OF OPERATION: 08/09/2018 SURGEON: Chris Campbell M.D. MINE SURVEYOR: Avi Tabor M.D. ANESTHESIOLOGIST: Paco Leahy M.D. ANESTHESIA TYPE: General endotracheal anesthesia. PREOPERATIVE DIAGNOSES: 1. Status post prior ACDF, C5, C6, and C7 with corpectomies secondary to disk herniations. 2. Pseudoarthrosis, C5, C6, and C7 with subsidence and recurrent radiculopathy, right upper extremity. OPERATIONS PERFORMED: 1. Posterior spinal fusion, C5, C6, and C7. 2. Nonsegmental instrumentation (lateral mass screws), C5 and C7. 3. Laminectomy with foraminotomy, C5 and superior portion of C6 with neural foraminotomy, C5-C6, right side. 4. Use of fluoroscopy. 5. Use of operating microscope. 6. Neurodiagnostic monitoring. 7. Use of local autograft bone as well as Bacterin bone strip. INDICATIONS: The patient is a very pleasant woman who had sustained a neck injury requiring cervical fusion who developed a pseudoarthrosis and recurrent neck pain and arm symptoms consistent with pseudarthrosis and foraminal stenosis. Surgical correction through a posterior approach was recommended. The patient elected to proceed. Foraminal stenosis at C5-C6 was noted, and a foraminal decompression was also recommended and performed. RISKS NOTE: The patient was explained in detail risks and benefits of surgery to include, but not be limited to those of bleeding; infection; damage to nerves, vessels, and tendons; anesthetic risk; allergic reaction; aspiration; and possibly . The patient understood and wished to proceed. OPERATIVE PROCEDURE IN DETAIL: The patient was taken to the operating suite. After general endotracheal anesthesia was obtained, Oneal catheter was placed. Platt head pins were inserted. She was then turned prone onto a radiolucent table and fixed firmly to the Platt head attachment. The posterior neck was prepped and draped in the usual sterile fashion. Incision was made from C3 through T1. Subperiosteal dissection was carried out bilaterally. A probe was placed that was felt to be the C4-C5 level, and this was visualized with fluoroscope. Please note that due to the patient's body habitus, the levels below could not be adequately visualized. The areas were then inspected, and stress testing of the facet joints was performed that was expected to be the C5-C6 and C6-C7 levels, and there was noted to be gross motion at both of these two levels. At this point, holes were drilled along the lateral mass of C5 on the left side. C6 was aborted based on the very small lateral masses. It was felt that if a screw was placed at C6, it would interfere with the placement of the other two screws. The C7 level was inspected, and based on the x-rays, it was felt that a 10 mm lateral mass screw could be safely placed. Due to the subsidence, it was elected not to perform the pedicle screws at C7. The lateral mass screw hole was drilled and tapped and noted to have good bony margins. A 10 mm screw was placed. Similarly on the right side, a C7 lateral mass screw was placed. The C5 screw was not placed. Instead, the operating microscope was brought into place and a generous laminal foraminotomy was performed using a high-speed drill. This was performed using standard technique by drilling out the leading edge of C5, superior edge of C6 as well as the facet joint of C5-C6. Microsect curette and Microsect Kerrison punches were then used to perform a foraminotomy. The C6 nerve root was clearly very swollen and indurated. At this point, once satisfied with the decompression, FloSeal was applied. The screw at C5 was also placed on the right side. At this point, the drilling of the facet joints at C5-C6 and C6-C7 was performed using a high-speed drill. Local autograft bone was packed in this area. The rods were then attached and locking caps were attached and secured and torqued to the appropriate level. This was performed on the right side as well. A piece of Bacterin strip was then applied at C5, C6, and C7 on both the right and the left. At this point, the patient received 1 g of vancomycin powderized over the wound. Fascia was repaired using #1 Vicryl and subcutaneous closure using 2-0 Vicryl. Dermabond and sterile dressing was applied. Platt head attachment was detached from the bed. The patient was turned supine onto a gurney. Platt head pins and head attachment were removed with no bleeding. The patient was then extubated and transferred to the recovery room in stable condition. Chris Romi Campbell DR: ARLET JOB#: [id number] CC:
--- NOTE | 2018-08-10 02:30 | Progress Note ---
DATE: 08/10/2018 ACUTE PAIN MANAGEMENT PHYSICIAN PROGRESS NOTE MEDICATIONS: Medication administration record reviewed. Medications include IV fluids, Colace, Protonix, q.12 hour dosing Ativan, and Ancef. P.r.n. medications include Tylenol, Zofran Chloraseptic spray, Benadryl, milk of magnesia, ICE RESURFACING MACHINE OPERATORS Dilaudid, Mylanta, and oxycodone. LABORATORY STUDIES: No interval laboratory studies. OBJECTIVE: Vital signs within normal limits. Afebrile, pulse 64, respirations 18, blood pressure 118/74, and oxygen saturation 99%. I saw the patient at the bedside with the nurse RN, Efrain. I spent over 60 minutes in consultation today. I discussed the case with the pharmacist, Ramón, along with the surgeon, Dr. Chris Campbell. The patient is moving all extremities x4. She has been using her Dilaudid ICE RESURFACING MACHINE [employer]PERATORS quite consistently. She shows no signs of oversedation. She did tolerate the scheduled Ativan 1 mg, which I dosed at 6 p.m. yesterday. I will continue this dosing every 12 hours to help reduce her opioid requirements. In addition to the [employer] unit, I also will use a breakthrough dose of Dilaudid 1 mg subcutaneously every three hours p.r.n. and I have instructed the nurse to titrate-in doses of oral oxycodone 25 mg to help transition off of the parenteral narcotics. I did leave a prescription for Percocet, quantity of 75 along with 1 mg oral Ativan, quantity of 25; to be used postoperatively. The patient's friend, Bibi, remains in the room to help with social support. I did encourage aggressive incentive spirometer usage. Currently, the patient is in too much discomfort to move in and out of bed. Hopefully, as she continues to heal, she will be able to ambulate. She denies any nausea symptoms. She is having hiccups, but no vomiting. She also denies any shortness of breath or chest pain. She does have sequential compression pneumatic devices in place for DVT prophylaxis. We will see how she advances with physical therapy training later today. Jake Almeida M.D. DR: MEREDITH JOB#: [id number] CC:
[2018-08-10] MEDS: D5 1/2NS 1,000 ML IV SCH ×3 (03:00→22:37)
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
[2018-08-10] MEDS: oxyCODONE 5mg IR tab ORAL PRN ×3 (03:43→20:44)
[2018-08-10 04:25] VITALS: BP 125/84
[2018-08-10] MEDS: LORazepam 1mg tab ORAL SCH ×2 (05:42→17:18)
[2018-08-10] MEDS: ceFAZolin sod 1 GM in D5W 55 ML IV SCH ×2 (05:42→12:26)
[2018-08-10] MEDS: PCA shift volume MISC SCH ×2 (07:51→19:37)
[2018-08-10] MEDS: HYDROmorphone 1mg/ml Carpuject SUBQ PRN (07:59)
[2018-08-10 08:00] VITALS: BP 143/86
[2018-08-10] MEDS ORDERED: Rate Change PCA 1 Each MISC PRN (08:00)
[2018-08-10] MEDS ORDERED: PCA Education Pamphlet MISC SCH (08:00)
--- NOTE | 2018-08-10 08:55 | Orthopedic Spine Progress Note ---
Ortho Spine - Progress Note Subjective Symptoms: c/o post-op neck pain, improved - as compared to pre-op Objective Vital Signs: Last 24 Hour Vital Signs Date Time Temp Pulse Resp B/P (MAP) Pulse Ox O2 Delivery O2 Flow Rate FiO2 08/10/18 08:00 102.6 08/10/18 08:00 102.6 100 19 143/86 (105) 95 102.6 08/10/18 04:25 97.6 73 16 125/84 (98) 99 97.6 08/10/18 00:13 97.7 64 18 118/74 (89) 99 97.7 08/10/18 00:00 18 08/09/18 22:00 18 08/09/18 21:00 Nasal Cannula 3.0 08/09/18 20:00 97.5 75 19 113/77 (89) 100 97.5 08/09/18 19:30 18 08/09/18 19:10 19 08/09/18 19:09 98.0 08/09/18 18:57 7 08/09/18 18:42 7 08/09/18 18:27 7 08/09/18 18:12 7 08/09/18 18:12 98.0 08/09/18 18:00 98.2 82 18 124/78 (93) 97 98.2 08/09/18 17:55 98.0 08/09/18 17:26 98.0 72 18 119/74 (89) 96 98.0 08/09/18 17:10 97.9 76 18 121/78 (92) 95 97.9 08/09/18 16:25 97.8 69 15 127/77 100 Nasal Cannula 3 97.8 08/09/18 16:24 97.8 08/09/18 16:24 97.8 08/09/18 16:11 67 18 127/78 100 Nasal Cannula 3 08/09/18 16:11 97.8 08/09/18 16:05 68 15 131/88 100 Nasal Cannula 3 08/09/18 15:54 97.0 08/09/18 15:54 69 16 122/85 100 Nasal Cannula 3 08/09/18 15:41 207.7 82 20 99 08/09/18 15:38 76 19 122/81 100 Simple Mask 6 08/09/18 15:33 76 23 130/76 100 Simple Mask 6 08/09/18 15:28 97.0 84 20 130/57 100 Simple Mask 6 97.0 08/09/18 10:59 97.2 80 20 126/81 (96) 98 97.2 08/09/18 10:49 Room Air I&O: Intake and Output 08/09/18 08/10/18 19:00 07:00 Intake Total 1100 ml 1180 ml Output Total 250 ml Balance 850 ml 1180 ml Intake Oral 780 ml IV Total 1100 ml 400 ml Output Urine Total 200 ml Estimated Blood Loss 50 ml # Voids 3 Wound: clean Drains: none Neuro Status: stable Additional Comments: r arm pain resolved Assessment Procedure Performed: c567 PSF, R c56 laminoforaminotomy Plan Plan: PT, pain management, discharge plan Chris Campbell MD Aug 10, 2018 08:54
[2018-08-10] MEDS: Docusate 100mg cap ORAL SCH ×2 (09:19→17:18)
--- NOTE | 2018-08-10 11:01 | 48 Hour Post Anesthesia Eval ---
Post Anesthesia Evaluation Procedure: C5-C7 posterior laminotomy with decompression and interbody fusion Date of Evaluation: Aug 10, 2018 Time of Evaluation: 07:00 Blood Pressure Systolic: 125 0: 84 Pulse Rate: 73 Respiratory Rate: 16 Temperature (Fahrenheit): 97.6 O2 Sat by Pulse Oximetry: 99 Airway: patent Nausea: No Vomiting: No Pain Intensity: 2 Hydration Status: adequate Cardiopulmonary Status: at baseline Mental Status/LOC: patient returned to baseline Post-Anesthesia Complications: 0 Follow-up care needed: N/A - further care as per primary team Nissa Lara MD Aug 10, 2018 11:01
--- NOTE | 2018-08-10 11:32 | History and Physical ---
History of Present Illness General Date patient seen: Aug 10, 2018 Present Illness HPI 43 year old female admitted for C5-6-7 PSF, R c56 laminoforaminotomy. She is admitted to floor for post op care. Allergies: Coded Allergies: ASPIRIN (Verified Allergy, Unknown, 09/28/13) Nut Tree (Verified Allergy, Unknown, 05/17/18) Medication History Scheduled No Known Medications* (NKM - No Known Medications*), 0 ., (Reported) Discontinued Medications Albuterol Sulfate* (Albuterol Sulfate Mdi*), 2 PUFF INH Q6H Discontinued Reason: Pt stopped taking med Azithromycin* (Zithromax*), 250 MG ORAL DAILY Discontinued Reason: Pt stopped taking med Oxycodone HCl/Acetaminophen (Percocet 10-325 mg Tablet), 1 EACH PO EVERY 4 HOURS Discontinued Reason: Pt stopped taking med Oxycodone Hcl/Acetaminophen 10-325 Mg Tablet (Percocet 10-325 Mg Tablet*), 10 TAB ORAL Q4H PRN for For Pain, (Reported) Discontinued Reason: Pt stopped taking med Oxycodone Hcl/Acetaminophen 10-325 Mg Tablet (Percocet 10-325 Mg Tablet*), 1 TAB ORAL Q6H PRN for For Pain Discontinued Reason: Pt stopped taking med Patient History Healthcare decision maker MARLENY MALIK-FRIEND Resuscitation status Full Code Advanced Directive on File Past Medical/Surgical History Past Medical/Surgical History: (1) Pseudarthrosis after fusion or arthrodesis (2) Herniated disc, cervical Review of Systems All Other Systems: negative except mentioned in HPI Physical Exam General Appearance: WD/WN, no apparent distress Lines, tubes and drains: peripheral HEENT: normocephalic, atraumatic Neck: non-tender, normal alignment Respiratory/Chest: chest wall non-tender, lungs clear Cardiovascular/Chest: normal peripheral pulses Abdomen: normal bowel sounds, non tender Genitourinary/Rectal: normal genital exam Extremities: normal range of motion Skin Exam: normal pigmentation 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 Last 24 Hour Vital Signs Date Time Temp Pulse Resp B/P (MAP) Pulse Ox O2 Delivery O2 Flow Rate FiO2 08/10/18 11:01 207.7 73 16 99 08/10/18 09:00 Room Air 08/10/18 08:30 100.9 100.9 08/10/18 08:30 100.9 08/10/18 08:00 19 08/10/18 08:00 102.6 08/10/18 08:00 102.6 100 19 143/86 (105) 95 102.6 08/10/18 04:25 97.6 73 16 125/84 (98) 99 97.6 08/10/18 00:13 97.7 64 18 118/74 (89) 99 97.7 08/10/18 00:00 18 08/09/18 22:00 18 08/09/18 21:00 Nasal Cannula 3.0 08/09/18 20:00 97.5 75 19 113/77 (89) 100 97.5 08/09/18 19:30 18 08/09/18 19:10 19 08/09/18 19:09 98.0 08/09/18 18:57 7 08/09/18 18:42 7 08/09/18 18:27 7 08/09/18 18:12 7 08/09/18 18:12 98.0 08/09/18 18:00 98.2 82 18 124/78 (93) 97 98.2 08/09/18 17:55 98.0 08/09/18 17:26 98.0 72 18 119/74 (89) 96 98.0 08/09/18 17:10 97.9 76 18 121/78 (92) 95 97.9 08/09/18 16:25 97.8 69 15 127/77 100 Nasal Cannula 3 97.8 08/09/18 16:24 97.8 08/09/18 16:24 97.8 08/09/18 16:11 67 18 127/78 100 Nasal Cannula 3 08/09/18 16:11 97.8 08/09/18 16:05 68 15 131/88 100 Nasal Cannula 3 08/09/18 15:54 97.0 08/09/18 15:54 69 16 122/85 100 Nasal Cannula 3 08/09/18 15:41 207.7 82 20 99 08/09/18 15:38 76 19 122/81 100 Simple Mask 6 08/09/18 15:33 76 23 130/76 100 Simple Mask 6 08/09/18 15:28 97.0 84 20 130/57 100 Simple Mask 6 97.0 Intake and Output 08/09/18 08/10/18 19:00 07:00 Intake Total 1100 ml 1280 ml Output Total 250 ml Balance 850 ml 1280 ml Intake Oral 780 ml IV Total 1100 ml 500 ml Output Urine Total 200 ml Estimated Blood Loss 50 ml # Voids 3 Height (Feet): 5 Height (Inches): 6.00 Weight (Pounds): 211 Medications Current Medications Medications (Trade) Dose Ordered Sig/Zeinab Route PRN Reason Start Time Stop Time Status Last Admin Dose Admin Acetaminophen (Tylenol) 650 mg Q4H PRN ORAL headache or temp>101 08/09/18 17:00 09/08/18 16:59 08/10/18 08:00 Al Hydroxide/Mg Hydroxide (Mylanta) 30 ml Q6H PRN ORAL GERD/DYSPEPSIA 08/09/18 17:45 09/08/18 17:44 Cefazolin Sodium 1 gm/Dextrose 55 ml @ 110 mls/hr Q8H IV 08/09/18 21:00 08/10/18 13:29 08/10/18 05:42 Dextrose/Sodium Chloride 1,000 ml @ 100 mls/hr Q10H IV 08/09/18 17:00 09/08/18 16:59 08/10/18 03:00 Diphenhydramine HCl (Benadryl) 25 mg Q6H PRN ORAL Itching 08/09/18 17:45 09/08/18 17:44 Docusate Sodium (Colace) 100 mg TWICE A DAY ORAL 08/09/18 18:00 09/08/18 17:59 08/10/18 09:19 Hydromorphone HCl 30 ml @ 0 mls/hr REAL ESTATE FIRM MANAGER protocol PRN IV For Pain 08/09/18 18:00 08/11/18 17:59 08/09/18 18:12 Hydromorphone HCl (Dilaudid) 1 mg Q3H PRN SUBQ Severe Breakthru Pain (>7) 08/09/18 17:45 08/16/18 17:44 08/10/18 07:59 Lorazepam (Ativan) 1 mg Q12H ORAL 08/09/18 18:00 08/16/18 17:59 08/10/18 05:42 Magnesium Hydroxide (Mom) 30 ml DAILYPRN PRN ORAL Constipation 08/09/18 17:45 09/08/18 17:44 Miscellaneous Medication (REAL ESTATE FIRM MANAGER Education Pamphlet) 1 ea ONCE MISC 08/10/18 08:00 08/10/18 12:00 08/10/18 08:10 Miscellaneous Medication (REAL ESTATE FIRM MANAGER Rate Change) 1 ea DAILY PRN MISC REAL ESTATE FIRM MANAGER RATE CHANGE 08/10/18 08:00 08/11/18 18:00 Miscellaneous Medication (REAL ESTATE FIRM MANAGER shift volume) 1 ea Q12HR@0700,1900 MISC 08/10/18 19:00 08/11/18 19:00 08/10/18 07:51 Naloxone HCl (Narcan) 0.1 mg PRN IV . 08/10/18 08:00 08/11/18 18:00 Ondansetron HCl (Zofran) 4 mg Q4H PRN IVP Nausea & Vomiting 08/09/18 17:45 09/08/18 17:44 Oxycodone HCl (Roxicodone) 25 mg Q3HR PRN ORAL Moderate Breakthru Pain (5-7) 08/10/18 00:45 08/17/18 00:44 08/10/18 09:19 Pantoprazole (Protonix) 40 mg BEDTIME ORAL 08/09/18 21:00 09/08/18 20:59 08/09/18 21:49 Phenol/Menthol (Chloraseptic) 1 spray Q3H PRN ORAL SORE THROAT 08/09/18 18:00 09/08/18 17:59 Assessment/Plan Problem List: (1) Herniated disc, cervical ICD Codes: M50.20 - Other cervical disc displacement, unspecified cervical region SNOMED: 013145283, [id number] (2) Pseudarthrosis after fusion or arthrodesis ICD Codes: M96.0 - Pseudarthrosis after fusion or arthrodesis SNOMED: 614660986 Assessment/Plan symptomatic treatment pain control dvt prophylaxis pt/ot Jasmyn Park MD Aug 10, 2018 11:32
[2018-08-10] MEDS: Tylenol #3 tab (300mg/30mg) ORAL PRN (11:51)
[2018-08-10 12:00] VITALS: BP 129/75
[2018-08-10 16:00] VITALS: BP 127/84
[2018-08-10 20:29] VITALS: BP 132/75
[2018-08-11] VITALS: BP 119/68
[2018-08-11] MEDS: oxyCODONE 5mg IR tab ORAL PRN ×3 (02:00→18:42)
[2018-08-11 04:00] VITALS: BP 131/76
[2018-08-11] MEDS: LORazepam 1mg tab ORAL SCH ×2 (06:07→18:00)
[2018-08-11] MEDS: PCA shift volume MISC SCH (07:00)
[2018-08-11 08:00] VITALS: BP 128/82
[2018-08-11] MEDS: Docusate 100mg cap ORAL SCH ×2 (08:20→18:41)
[2018-08-11] MEDS: HYDROmorphone 1mg/ml Carpuject SUBQ PRN (08:22)
--- NOTE | 2018-08-11 09:00 | Progress Note ---
DATE: 08/11/2018 ACUTE PAIN MANAGEMENT PHYSICIAN PROGRESS NOTE MEDICATIONS: Medication administration record reviewed. Medications include Chloraseptic spray, Protonix, oxycodone, Zofran, Narcan, Dilaudid CAN DOFFER, milk of magnesia, Ativan, Dilaudid, Colace, Benadryl, Mylanta, Tylenol No. 3, Tylenol with Codeine. LABORATORY STUDIES: No interval laboratory studies. OBJECTIVE: VITAL SIGNS: Afebrile, pulse 99, respirations 18, blood pressure 131/76, and oxygen saturation 98% on room air. I spent over 60 minutes in consultation today. I saw the patient at the bedside with her friend and the nurse RN, Azalea. Dr. Campbell evaluated the patient yesterday and was pleased with her surgical outcome. The patient's right arm pain has resolved compared to preop. Over the past 24 hours, the patient has been recovering quite well. She shows no over sedation on a q.12 h. dosing of Ativan. She has been using her CAN DOFFER, but with decreasing frequency over the past overnight shift. At this point, I think it is appropriate to discontinue her CAN DOFFER. I will also Hep-Lock her IV at this time, to encourage movement in and out of bed. The patient continues to wear her [place] collar. She is tolerating oral intake and denies any nausea symptoms. Dr. Park, started the patient on Tylenol with Codeine for headache complaints. I would continue the breakthrough Dilaudid injections along with her scheduled q.12 h. dosing of Ativan of a primary analgesia. The patient also has been tolerating oral oxycodone mg dosing, which seems to be effective. Incentive spirometer remains at the bedside, to encourage good pulmonary toilet. The patient will continue training with physical therapy and occupational training as tolerated. I have left a prescription for 75 tablets of Percocet along with 25 tablets of Ativan for outpatient usage. Dr. Campbell, will evaluate the patient again later today. Jake Almeida M.D. DR: ARLENE JOB#: [id number] CC:
--- NOTE | 2018-08-11 09:20 | Orthopedic Spine Progress Note ---
Ortho Spine - Progress Note Subjective Symptoms: c/o post-op neck pain, improved - r arm radiculopathy resolved Objective Vital Signs: Last 24 Hour Vital Signs Date Time Temp Pulse Resp B/P (MAP) Pulse Ox O2 Delivery O2 Flow Rate FiO2 08/11/18 08:00 98.2 110 20 128/82 (97) 98 98.2 08/11/18 04:00 99.0 99 17 131/76 (94) 98 99.0 08/11/18 04:00 18 08/11/18 00:00 99.2 103 16 119/68 (85) 99 99.2 08/11/18 00:00 19 08/10/18 21:00 Room Air 08/10/18 20:29 98.0 107 18 132/75 (94) 96 98.0 08/10/18 20:00 18 08/10/18 16:00 18 08/10/18 16:00 98.4 100 18 127/84 (98) 94 98.4 08/10/18 12:00 20 08/10/18 12:00 100.0 104 20 129/75 (93) 94 100.0 08/10/18 11:01 207.7 73 16 99 I&O: Intake and Output 08/10/18 08/11/18 19:00 07:00 Intake Total 1700 ml 1320 ml Balance 1700 ml 1320 ml Intake Oral 600 ml 320 ml IV Total 1100 ml 1000 ml # Voids 6 7 Wound: clean, intact Drains: none Neuro Status: normal Assessment Procedure Performed: c567 PSF, R c56 laminoforaminotomy Plan Plan: PT, pain management, discharge plan Chris Campbell MD Aug 11, 2018 09:20
--- NOTE | 2018-08-11 11:37 | Pulmonology Progress Note ---
Assessment/Plan Problems: (1) Herniated disc, cervical (2) Pseudarthrosis after fusion or arthrodesis (3) Headache Assessment/Plan symptomatic treatment tylenol 3 is working very well for her dc planning for am Subjective ROS Limited/Unobtainable: No Constitutional: Reports: no symptoms HEENT: Repors: no symptoms Respiratory: Reports: no symptoms Allergies: Coded Allergies: ASPIRIN (Verified Allergy, Unknown, 09/28/13) Nut Tree (Verified Allergy, Unknown, 05/17/18) Objective Last 24 Hour Vital Signs Date Time Temp Pulse Resp B/P (MAP) Pulse Ox O2 Delivery O2 Flow Rate FiO2 08/11/18 09:00 Room Air 08/11/18 08:00 18 08/11/18 08:00 98.2 110 20 128/82 (97) 98 98.2 08/11/18 04:00 99.0 99 17 131/76 (94) 98 99.0 08/11/18 04:00 18 08/11/18 00:00 99.2 103 16 119/68 (85) 99 99.2 08/11/18 00:00 19 08/10/18 21:00 Room Air 08/10/18 20:29 98.0 107 18 132/75 (94) 96 98.0 08/10/18 20:00 18 08/10/18 16:00 18 08/10/18 16:00 98.4 100 18 127/84 (98) 94 98.4 08/10/18 12:00 20 08/10/18 12:00 100.0 104 20 129/75 (93) 94 100.0 Intake and Output 08/10/18 08/11/18 19:00 07:00 Intake Total 1700 ml 1320 ml Balance 1700 ml 1320 ml Intake Oral 600 ml 320 ml IV Total 1100 ml 1000 ml # Voids 6 7 General Appearance: WD/WN HEENT: normocephalic, atraumatic Respiratory/Chest: chest wall non-tender, lungs clear Breasts: no masses Cardiovascular: normal peripheral pulses Abdomen: normal bowel sounds, no organomegaly Genitourinary: normal external genitalia Extremities: no clubbing Skin: no rash 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 Complete Current Medications Medications (Trade) Dose Ordered Sig/Zeinab Route PRN Reason Start Time Stop Time Status Last Admin Dose Admin Acetaminophen (Tylenol) 650 mg Q4H PRN ORAL headache or temp>101 08/09/18 17:00 09/08/18 16:59 08/10/18 08:00 Acetaminophen/ Codeine Phosphate (Tylenol #3) 1 tab Q6H PRN ORAL HEADACHE 08/10/18 11:45 08/17/18 11:44 08/10/18 11:51 Al Hydroxide/Mg Hydroxide (Mylanta) 30 ml Q6H PRN ORAL GERD/DYSPEPSIA 08/09/18 17:45 09/08/18 17:44 Diphenhydramine HCl (Benadryl) 25 mg Q6H PRN ORAL Itching 08/09/18 17:45 09/08/18 17:44 Docusate Sodium (Colace) 100 mg TWICE A DAY ORAL 08/09/18 18:00 09/08/18 17:59 08/11/18 08:20 Hydromorphone HCl (Dilaudid) 1 mg Q3H PRN SUBQ Severe Breakthru Pain (>7) 08/09/18 17:45 08/16/18 17:44 08/11/18 08:22 Lorazepam (Ativan) 1 mg Q12H ORAL 08/09/18 18:00 08/16/18 17:59 08/11/18 06:07 Magnesium Hydroxide (Mom) 30 ml DAILYPRN PRN ORAL Constipation 08/09/18 17:45 09/08/18 17:44 Ondansetron HCl (Zofran) 4 mg Q4H PRN IVP Nausea & Vomiting 08/09/18 17:45 09/08/18 17:44 Oxycodone HCl (Roxicodone) 25 mg Q3HR PRN ORAL Moderate Breakthru Pain (5-7) 08/10/18 00:45 08/17/18 00:44 08/11/18 02:00 Pantoprazole (Protonix) 40 mg BEDTIME ORAL 08/09/18 21:00 09/08/18 20:59 08/10/18 20:35 Phenol/Menthol (Chloraseptic) 1 spray Q3H PRN ORAL SORE THROAT 08/09/18 18:00 09/08/18 17:59 Jasmyn Park MD Aug 11, 2018 11:37
[2018-08-11] MEDS: Tylenol #3 tab (300mg/30mg) ORAL PRN (11:40)
[2018-08-11 12:00] VITALS: BP 134/85
[2018-08-11 16:00] VITALS: BP 133/89
[2018-08-11 20:00] VITALS: BP 114/71
[2018-08-12] VITALS: BP 123/79
[2018-08-12] MEDS: oxyCODONE 5mg IR tab ORAL PRN ×2 (00:27→06:45)
[2018-08-12] MEDS: Tylenol #3 tab (300mg/30mg) ORAL PRN (03:03)
[2018-08-12 04:00] VITALS: BP 123/80
[2018-08-12] MEDS: LORazepam 1mg tab ORAL SCH (05:45)
[2018-08-12] MEDS ORDERED: PERCOCET 10-321 EACH ORAL (07:12)
[2018-08-12] MEDS ORDERED: ATIVAN1 MG ORAL (07:13)
--- NOTE | 2018-08-12 07:45 | Progress Note ---
DATE: 08/12/2018 ACUTE PAIN MANAGEMENT PHYSICIAN PROGRESS NOTE MEDICATIONS: Medication administration record reviewed. Medications include Colace, Protonix, and q.12 hours Ativan. P.r.n. medications include Tylenol, Zofran, Chloraseptic, Benadryl, milk of magnesia, Dilaudid, Mylanta, and oxycodone. LABORATORY STUDIES: No interval laboratory studies. OBJECTIVE: VITAL SIGNS: Within normal limits. Afebrile, pulse 103, respirations 18, blood pressure 123/80, and oxygen saturation 96%. I spent over 60 minutes in consultation, the past 24 hours with multiple discussions with the surgeon, Dr. Campbell, the charge nurse RN, Anni and the overnight nurse RN, Jessi. Dr. Campbell at hope to discharge the patient from the hospital yesterday, but the patient stated that she was too unsteady walking and felt uncomfortable discharging home at that time. The patient remained overnight where she has been able to decrease her opioid requirements. She has used oxycodone several times. We continue with her q.12 hours dosing of Ativan without any adverse side effects. She has been ambulating to the restroom without difficulty and tolerating food without any shortness of breath or chest pain. Prescriptions were left for Ativan and Percocet. Her friend remains at the bedside providing good social support and she will drive her home later today when she returns home. The patient will follow up with Dr. Campbell in the outpatient surgical clinic in the next two weeks. With normal vital signs, I see no contraindication for discharge home at this time. Jake Almeida M.D. DR: ARLENE JOB#: [id number] CC:
[2018-08-12 08:00] VITALS: BP 129/85
[2018-08-12] MEDS: Docusate 100mg cap ORAL SCH (08:13)
[2018-08-12] MEDS ORDERED: D5 1/2NS 1000ml IV ONE ×2 (08:24)
[2018-08-13] MEDS ORDERED: CLINDAMYCIN HC300 MG ORAL (01:03)
--- NOTE | 2018-08-15 14:33 | Discharge Summary ---
Discharge Summary Hospital Course Date of Admission Aug 09, 2018 at 10:31 Date of Discharge Aug 12, 2018 at 08:25 Admitting Diagnosis Patient sustained a neck injury, requiring cervical fusion , subsequently developed pseudoarthrosis and recurrent neck pain and arm symptoms consistent with pseudarthrosis and foraminal stenosis. Surgical correction through a posterior approach was recommended. The patient elected to proceed. Reason for Hospitalization: elective surgery HPI Catarina Osuna is a 43 year old female who was admitted on Aug 09, 2018 at 10:31 Pseudoarthrosis, C5, C6, and C7 and recurrent cervical radiculopathy to right upper extremity. Patient was admitted for elective surgery. Consultations dr Park IM dr Almeida pain specialist Procedures s/p 08/09/[address] Campbell 1. Posterior spinal fusion, C5, C6, and C7. 2. Nonsegmental instrumentation (lateral mass screws), C5 and C7. 3. Laminectomy with foraminotomy, C5 and superior portion of C6 with neural foraminotomy, C5-C6, right side. 4. Use of fluoroscopy. 5. Use of operating microscope. 6. Neurodiagnostic monitoring. 7. Use of local autograft bone as well as Bacterin bone strip. Hospital Course s/p surgery course of recovery uneventful initially IVF s/p perioperative antibiotics neurovascular status closely monitored pain management addressed pain specialist followed; pain controlled incision clean ,dry and intact patient was out of bed with physical therapy, fall precautions maintained patient was able to ambulate safely started on diet as tolerated , antiemetics as needed were on board able to tolerate diet IV fluids discontinued voided freely bowel regimen instituted on the day after surgery postoperative fever , which resolved and no fever for the last 48 hours patient was encouraged to use incentive spirometry while in the bed ; incision clean dry and intact; no other complaints discharge instruction provided patient was stable for discharge outpatient follow-up with surgeon as advised FINAL DIAGNOSES Pseudoarthrosis, C5, C6, and C7 with subsidence Recurrent cervical radiculopathy to right upper extremity. Foraminal stenosis s/p C 5-6-7 PSF, R C 5-6 laminoforaminotomy Discharge Medications Continued Medications: Lorazepam* (Ativan*) 1 Mg Tablet 1 MG ORAL BID for SPASM/ANXIETY, #25 TAB (This prescription has been renewed) Oxycodone Hcl/Acetaminophen 10-325 Mg Tablet (Percocet 10-325 Mg Tablet*) 1 Each Tablet 1 TAB ORAL QID PRN for For Pain, #75 TAB (This prescription has been renewed) Discharge Condition Upon Discharge: stable Discharge Disposition Patient was discharged to Home (01) Discharge Instructions Discharge Instructions Special Instructions I have been assigned to complete a D/C Summary on this account. I was not involved in the patient management Jocelyne Downey NP Aug 15, 2018 14:33
== END 2018-08-12 08:25 | disposition home or self-care (01) | DRG 472 ==
LOC: SDSOVERFLO 10:31 → EDSTATUS 12:00 → 3E 16:37
DX: M48.02 Spinal stenosis, cervical region (principal); M96.0 Pseudarthrosis after fusion or arthrodesis; M54.12 Radiculopathy, cervical region; G89.18 Other acute postprocedural pain; D25.9 Leiomyoma of uterus, unspecified; R51 Headache; E66.9 Obesity, unspecified; Z68.34 Body mass index [BMI] 34.0-34.9, adult
CPT/HCPCS: 36415; 72040; 76001; 86850; 86900; 86901; 87081; 94003; 94150; J2250; J2370; J2405; J2710

== ENCOUNTER 2018-08-13 22:35 | Inpatient (IN) | payer MEDICAID ==
[~2018-08-13] VITALS: Ht 167.6 cm; Wt 85.4 kg
[~2018-08-13 22:35] MED LIST changes: +ATIVAN1 MG ORAL; +CLINDAMYCIN HC300 MG ORAL; -Midazolam 2mg/2ml Inj ONE; -Phenylephrine 10mg/ml Vial ONE; -Propofol 200mg/20ml IV ONE; -ceFAZolin sod 1 GM in D5W 55 ML IVPB ONE; -fentaNYL 100 mcg/2 mL IV ONE
[2018-08-13 23:00] VITALS: BP 136/90
[2018-08-13] MEDS ORDERED: Isovue-300 100ml vial INJ PRN (23:15)
[2018-08-13] MEDS ORDERED: NS 1000ml 2,900 ML IVLG ONE (23:15)
[2018-08-13] MEDS ORDERED: Vancomycin 1.5gm/D5W 250ml 250 ML IVPB ONE (23:15)
[2018-08-13] MEDS ORDERED: HYDROmorphone 1mg/ml Carpuject IVP ONE (23:15)
[2018-08-13] MEDS ORDERED: Cefepime HCl 1 GM in NS 55 ML IV SCH (23:15)
--- NOTE | 2018-08-13 23:24 | Emergency Room Report ---
History of Present Illness General Chief Complaint: Neck Pain Source: Patient, Family Member, Medical Record Present Illness HPI Is a 43-year-old female who had a recent cervical spine surgery by Dr. Rai. Patient presents with chief complaint of wound drainage and fever. She was recently discharged and I saw her yesterday for drainage from a wound. Labs were unremarkable. Wound was serosanguineous in nature. No obvious infection. I gave her antibiotics IV here and discharged on clindamycin. Patient was doing well until tonight when she spiked a fever 102. Still has drainage. Still with neck pain. No nausea no vomiting. Denies any trauma. Pain is better with Percocet. No other complaint Allergies: Coded Allergies: ASPIRIN (Verified Allergy, Unknown, 09/28/13) Nut Tree (Verified Allergy, Unknown, 05/17/18) Patient History Past Medical History: see triage record, old chart reviewed Past Surgical History: other Pertinent Family History: none Social History: Denies: smoking Last Menstrual Period: 2015 Now: No : 0 Para: 0 Immunizations: other Reviewed Nursing Documentation: PMH: Agreed; PSxH: Agreed Nursing Documentation-PMH Hx Cardiac Problems: No Hx Cancer: No Hx Gastrointestinal Problems: No Hx Neurological Problems: No - 2 cervical spine fushions 07/2017 & 07/2018 Review of Systems Constitutional: Reports: fever Eye: Denies: eye pain, blurred vision ENT: Denies: ear pain, nose congestion, throat swelling Respiratory: Denies: cough, shortness of breath Cardiovascular: Denies: chest pain, palpitations Gastrointestinal: Denies: abdominal pain, diarrhea, nausea, vomiting Musculoskeletal: Denies: back pain, joint pain Skin: Denies: rash Neurological: Denies: headache, numbness Endocrine: Denies: increased thirst, increased urine Hematologic/Lymphatic: Denies: easy bruising All Other Systems: negative except mentioned in HPI Physical Exam Vital Signs Date Time Temp Pulse Resp B/P (MAP) Pulse Ox O2 Delivery O2 Flow Rate FiO2 08/13/18 22:49 98.1 87 16 136/90 96 Room Air 98.1 vitals unremarkable Sp02 EP Interpretation: reviewed, normal General Appearance: well appearing, no apparent distress, alert Head: normocephalic, atraumatic Eyes: bilateral eye PERRL, bilateral eye EOMI ENT: hearing grossly normal, normal pharynx Neck: full range of motion, no meningismus, other - Neck wound with decreasing drainage. Still serosanguineous. Skin shows some maceration from fluid. No crepitance. No purulent discharge seen. Respiratory: chest non-tender, lungs clear, normal breath sounds Cardiovascular #1: regular rate, rhythm, no murmur Gastrointestinal: normal bowel sounds, non tender, no mass, no organomegaly, no bruit, non-distended Musculoskeletal: back normal, gait/station normal, normal range of motion Psychiatric: mood/affect normal Skin: warm/dry Medical Decision Making Diagnostic Impression: Primary Impression: Post op infection Qualified Codes: T81.4XXA - Infection following a procedure, initial encounter ER Course This is a 43-year-old female who had recent cervical fusion surgery. She had drainage that looked more serosanguineous then purulent. White count normal. With the fever concerning for postoperative infection. Chest x-ray negative. Urinalysis is negative. Antibiotics given here. She said she felt better. We' ll admit for further IV antibiotics. I discussed the case with Dr. Maguire from her insurance I [place]. He authorized admission here. I contacted Dr. Park and Dr. Rai for admission. Lab Results Impression labs normal Rhythm Strip Diag. Results Rhythm Strip Time: 01:24 EP Interpretation: yes Rate: 80 Rhythm: NSR, no PVC's, no ectopy Chest X-Ray Diagnostic Results Chest X-Ray Diagnostic Results : Chest X-Ray Ordered: Yes # of Views/Limited/Complete: 1 View Indication: Chest Pain EP Interpretation: Yes Interpretation: no consolidation, no effusion, no pneumothorax, no acute cardiopulmonary disease Impression: No acute disease Electronically Signed by: Pratik Witt MD CT/MRI/US Diagnostic Results CT/MRI/US Diagnostic Results : Imaging Test Ordered: CT neck with IV cont Impression Read by radiologist. Postoperative changes. Nonspecific fluid collection along the subcutaneous midline incision measuring up to 14 x 21 mm. This extends to the spinous processes. Last Vital Signs Date Time Temp Pulse Resp B/P (MAP) Pulse Ox O2 Delivery O2 Flow Rate FiO2 08/13/18 22:49 98.1 87 16 136/90 96 Room Air 98.1 Status: improved Disposition: ADMITTED INPATIENT Condition: Serious Referrals: NON PHYSICIAN (PCP) PRATIK WITT M.D. Aug 13, 2018 23:24
[2018-08-13 23:55] LABS: APPEARANCE,URINE CLEAR; BILIRUBIN, URINE NEGATIVE (NEGATIVE); COLOR,URINE PALE YELLOW; GLUCOSE, URINE (UA) NEGATIVE (NEGATIVE); KETONES,URINE NEGATIVE (NEGATIVE); LEUKOCYTE ESTERASE ,URINE NEGATIVE (NEGATIVE); NITRITE,URINE NEGATIVE (NEGATIVE); PH,URINE 8 (4.5-8.0); PROTEIN,URINE NEGATIVE (NEGATIVE); UROBILINOGEN,URINE NORMAL MG/DL (0.0-1.0)
[2018-08-13 23:57] LABS: BASOPHILS % (AUTO) 0.9 % (0.0-2.0); EOSINOPHILS % (AUTO) 5.1 % (0.0-3.0); HEMATOCRIT 40.5 % (37.0-47.0); HEMOGLOBIN 13.7 G/DL (12.0-16.0); LYMPHOCYTES % (AUTO) 27.1 % (20.0-45.0); MEAN CORPUSCULAR VOLUME 87 FL (80-99); MONOCYTES % (AUTO) 8.1 % (1.0-10.0); NEUTROPHILS % (AUTO) 58.9 % (45.0-75.0); PLATELET COUNT 280 K/UL (150-450); RED BLOOD COUNT 4.64 M/UL (4.20-5.40); RED CELL DISTRIBUTION WIDTH 13.1 % (11.6-14.8); WHITE BLOOD COUNT 9.5 K/UL (4.8-10.8)
[2018-08-13 23:58] LABS: ANION GAP 5 mmol/L (5-15); BLOOD UREA NITROGEN 6 mg/dL (7-18); CALCIUM 9.5 MG/DL (8.5-10.1); CARBON DIOXIDE 32 MMOL/L (21-32); CHLORIDE 101 MMOL/L (98-107); CREATININE 0.8 MG/DL (0.55-1.30); SODIUM 138 MMOL/L (136-145)
[2018-08-14] VITALS (7 sets, daily range): BP systolic 127–138; BP diastolic 72–86
[2018-08-14] LABS: INR 0.9 (0.9-1.1)
[2018-08-14 00:03] LABS: ALANINE AMINOTRANSFERASE 30 U/L (12-78); ALBUMIN/GLOBULIN RATIO 0.6 (1.0-2.7); ALKALINE PHOSPHATASE 77 U/L (46-116); ASPARTATE AMINO TRANSFERASE 17 U/L (15-37); BILIRUBIN,TOTAL 0.3 MG/DL (0.2-1.0)
[2018-08-14] MEDS ORDERED: Miralax 17gm pkt ORAL PRN (07:30)
[2018-08-14] MEDS ORDERED: Morphine Sulfate 2mg/ml Inj IVP PRN (07:30)
[2018-08-14] MEDS ORDERED: Nitroglycerin Subl 0.4mg tab SL PRN (07:30)
[2018-08-14] MEDS ORDERED: Albuterol/Ipratropium 3ml neb HHN PRN (07:30)
[2018-08-14] MEDS: Morphine Sulfate 2mg/ml Inj IVP PRN ×3 (07:53→16:10)
[2018-08-14] MEDS: Heparin 5000 units/ml inj SUBQ SCH ×2 (09:39→20:19)
[2018-08-14] MEDS: Cefepime HCl 2 GM in D5W 110 ML IV SCH ×2 (10:01→20:16)
[2018-08-14] MEDS: Vancomycin 1 GM in D5W 275 ML IVPB SCH ×2 (10:56→18:33)
[2018-08-14] MEDS: Morphine Sulfate 4mg/ml Inj (IV USE ONLY) IVP PRN (20:17)
[2018-08-15] MEDS: Morphine Sulfate 4mg/ml Inj (IV USE ONLY) IVP PRN ×6 (00:04→20:35)
[2018-08-15] MEDS: Vancomycin 1 GM in D5W 275 ML IVPB SCH (02:00)
[2018-08-15 02:06] LABS: BASOPHILS % (AUTO) 1.2 % (0.0-2.0); EOSINOPHILS % (AUTO) 5.1 % (0.0-3.0); HEMATOCRIT 43.4 % (37.0-47.0); HEMOGLOBIN 14.9 G/DL (12.0-16.0); LYMPHOCYTES % (AUTO) 25.5 % (20.0-45.0); MEAN CORPUSCULAR VOLUME 88 FL (80-99); NEUTROPHILS % (AUTO) 60.2 % (45.0-75.0); PLATELET COUNT 308 K/UL (150-450); RED BLOOD COUNT 4.93 M/UL (4.20-5.40); WHITE BLOOD COUNT 10.4 K/UL (4.8-10.8)
[2018-08-15 02:33] LABS: ALANINE AMINOTRANSFERASE 34 U/L (12-78); ALBUMIN 3.1 G/DL (3.4-5.0); ALBUMIN/GLOBULIN RATIO 0.6 (1.0-2.7); ALKALINE PHOSPHATASE 83 U/L (46-116); ANION GAP 10 mmol/L (5-15); ASPARTATE AMINO TRANSFERASE 16 U/L (15-37); BILIRUBIN,TOTAL 0.2 MG/DL (0.2-1.0); BLOOD UREA NITROGEN 7 mg/dL (7-18); CALCIUM 9.1 MG/DL (8.5-10.1); CARBON DIOXIDE 29 MMOL/L (21-32); CHLORIDE 102 MMOL/L (98-107); CREATININE 0.8 MG/DL (0.55-1.30); POTASSIUM 3.7 MMOL/L (3.5-5.1); SODIUM 141 MMOL/L (136-145)
[2018-08-15] MEDS: Vancomycin 1250mg/D5W 250ml 250 ML IVPB SCH ×3 (03:49→20:29)
[2018-08-15 04:04] VITALS: BP 135/88
[2018-08-15 08:00] VITALS: BP 114/79
[2018-08-15] MEDS: Cefepime HCl 2 GM in D5W 110 ML IV SCH ×2 (08:29→22:06)
[2018-08-15] MEDS: Heparin 5000 units/ml inj SUBQ SCH ×2 (08:34→20:41)
[2018-08-15 12:00] VITALS: BP 122/81
--- NOTE | 2018-08-15 12:07 | Infectious Diseases Prog Note ---
Assessment/Plan Assessment/Plan Full consult dictated: A) 1) s/p cervical spine surgery - fusion, laminectomy and foraminotomy 2) post-operative drainage and pain 3) ? wound infection/cellulitis/post-surgical infection vs post-operative changes P) 1) vancomycin and cefepime 2) d/w Dr. Campbell - will evaluate patient for possible surgical intervention 3) wound culture if drainage noted 4) thank you Subjective Allergies: Coded Allergies: ASPIRIN (Verified Allergy, Unknown, 09/28/13) Nut Tree (Verified Allergy, Unknown, 05/17/18) Objective Vital Signs Last 24 Hour Vital Signs Date Time Temp Pulse Resp B/P (MAP) Pulse Ox O2 Delivery O2 Flow Rate FiO2 08/15/18 11:19 99.5 08/15/18 10:31 99.5 08/15/18 08:19 Room Air 08/15/18 08:00 99.5 88 20 114/79 (91) 96 99.5 08/15/18 07:41 98.4 08/15/18 04:04 98.4 87 18 135/88 (104) 99 98.4 08/15/18 03:49 98.8 08/15/18 00:04 98.8 08/14/18 21:05 Room Air 08/14/18 20:17 98.8 08/14/18 20:00 98.6 98 18 138/80 (99) 98 98.6 08/14/18 16:10 98.8 08/14/18 16:00 98.3 92 18 127/86 (100) 98 98.3 08/14/18 12:31 98.8 08/14/18 12:01 98.8 Height (Feet): 5 Height (Inches): 6.00 Weight (Pounds): 210 Microbiology Date/Time Source Procedure Growth Status 08/14/18 01:20 Blood Blood Culture - Preliminary NO GROWTH AFTER 24 HOURS Resulted 08/14/18 01:05 Blood Blood Culture - Preliminary NO GROWTH AFTER 24 HOURS Resulted Laboratory Tests Test 08/15/18 01:32 08/15/18 01:35 Erythrocyte Sedimentation Rate 50 MM/HR (0-20) H C-Reactive Protein, Quantitative 9.5 mg/dL (0.00-0.90) H White Blood Count 10.4 K/UL (4.8-10.8) Red Blood Count 4.93 M/UL (4.20-5.40) Hemoglobin 14.9 G/DL (12.0-16.0) Hematocrit 43.4 % (37.0-47.0) Mean Corpuscular Volume 88 FL (80-99) Mean Corpuscular Hemoglobin 30.1 PG (27.0-31.0) Mean Corpuscular Hemoglobin Concent 34.3 G/DL (32.0-36.0) Red Cell Distribution Width 13.0 % (11.6-14.8) Platelet Count 308 K/UL (150-450) Mean Platelet Volume 8.8 FL (6.5-10.1) Neutrophils (%) (Auto) 60.2 % (45.0-75.0) Lymphocytes (%) (Auto) 25.5 % (20.0-45.0) Monocytes (%) (Auto) 8.0 % (1.0-10.0) Eosinophils (%) (Auto) 5.1 % (0.0-3.0) H Basophils (%) (Auto) 1.2 % (0.0-2.0) Sodium Level 141 MMOL/L (136-145) Potassium Level 3.7 MMOL/L (3.5-5.1) Chloride Level 102 MMOL/L (98-107) Carbon Dioxide Level 29 MMOL/L (21-32) Anion Gap 10 mmol/L (5-15) Blood Urea Nitrogen 7 mg/dL (7-18) Creatinine 0.8 MG/DL (0.55-1.30) Estimat Glomerular Filtration Rate > 60 mL/min (>60) Glucose Level 111 MG/DL (74-106) H Calcium Level 9.1 MG/DL (8.5-10.1) Total Bilirubin 0.2 MG/DL (0.2-1.0) Aspartate Amino Transf (AST/SGOT) 16 U/L (15-37) Alanine Aminotransferase (ALT/SGPT) 34 U/L (12-78) Alkaline Phosphatase 83 U/L (46-116) Total Protein 8.2 G/DL (6.4-8.2) Albumin 3.1 G/DL (3.4-5.0) L Globulin 5.1 g/dL Albumin/Globulin Ratio 0.6 (1.0-2.7) L Vancomycin Level Trough 10.0 ug/mL (5.0-12.0) Current Medications Medications (Trade) Dose Ordered Sig/Zeinab Route PRN Reason Start Time Stop Time Status Last Admin Dose Admin Acetaminophen (Tylenol) 650 mg Q4H PRN ORAL T>100.5 08/14/18 07:30 09/13/18 07:29 Albuterol/ Ipratropium (Albuterol/ Ipratropium) 3 ml Q4H PRN HHN Shortness of Breath 08/14/18 07:30 08/19/18 07:29 Cefepime HCl 2 gm/ Dextrose 110 ml @ 220 mls/hr EVERY 12 HOURS IV 08/14/18 09:00 08/21/18 08:59 08/15/18 08:29 Dextrose (Dextrose 50%) 25 ml Q30M PRN IV hypoglycemia 08/14/18 07:30 09/13/18 07:29 Dextrose (Dextrose 50%) 50 ml Q30M PRN IV hypoglycemia 08/14/18 07:30 09/13/18 07:29 Heparin Sodium (Porcine) (Heparin 5000 units/ml) 5,000 units EVERY 12 HOURS SUBQ 08/14/18 09:00 09/13/18 08:59 08/15/18 08:34 Iopamidol (Isovue-300 100ml) 100 ml NOW PRN INJ Radiology Procedure 08/13/18 23:15 08/15/18 23:01 Morphine Sulfate (Morphine Sulfate) 4 mg Q3H PRN IVP Severe Pain (Pain Scale 7-10) 08/14/18 19:00 08/21/18 18:59 08/15/18 10:31 Nitroglycerin (Ntg) 0.4 mg Q5MIN X 3 DOSES PRN SL Prn Chest Pain 08/14/18 07:30 09/13/18 07:29 Ondansetron HCl (Zofran) 4 mg Q6H PRN IVP Nausea & Vomiting 08/14/18 07:30 09/13/18 07:29 Polyethylene Glycol (Miralax) 17 gm DAILYPRN PRN ORAL Constipation 08/14/18 07:30 09/13/18 07:29 08/14/18 18:39 Temazepam (Restoril) 15 mg HSPRN PRN ORAL Insomnia 08/14/18 21:00 08/21/18 20:59 Vancomycin HCl (Vanco rx to dose) 1 ea DAILY PRN MISC . 08/14/18 07:45 09/13/18 07:44 Vancomycin HCl/ Dextrose 250 ml @ 167 mls/hr Q8H IVPB 08/15/18 04:00 08/20/18 03:59 08/15/18 11:42 Christian Titus MD Aug 15, 2018 12:07
--- NOTE | 2018-08-15 12:45 | History and Physical ---
History of Present Illness General Date patient seen: Aug 15, 2018 Reason for Hospitalization: Neck Pain Present Illness HPI 43-year-old female with a recent cervical spine surgery by Dr. Rai presented with chief complaint of wound drainage and fever. Wound was serosanguineous in nature. She spiked a fever of 102 prior to coming to ER. She has some neck pain. No nausea no vomiting. Allergies: Coded Allergies: ASPIRIN (Verified Allergy, Unknown, 09/28/13) Nut Tree (Verified Allergy, Unknown, 05/17/18) Medication History Scheduled Clindamycin Hcl (Clindamycin Hcl), 300 MG ORAL THREE TIMES A DAY Lorazepam* (Ativan*), 1 MG ORAL BID, (Reported) No Known Medications* (NKM - No Known Medications*), 0 ., (Reported) Scheduled PRN Oxycodone Hcl/Acetaminophen 10-325 Mg Tablet (Percocet 10-325 Mg Tablet*), 1 TAB ORAL QID PRN for For Pain, (Reported) Discontinued Medications Albuterol Sulfate* (Albuterol Sulfate Mdi*), 2 PUFF INH Q6H Discontinued Reason: Pt stopped taking med Azithromycin* (Zithromax*), 250 MG ORAL DAILY Discontinued Reason: Pt stopped taking med Oxycodone HCl/Acetaminophen (Percocet 10-325 mg Tablet), 1 EACH PO EVERY 4 HOURS Discontinued Reason: Pt stopped taking med Oxycodone Hcl/Acetaminophen 10-325 Mg Tablet (Percocet 10-325 Mg Tablet*), 10 TAB ORAL Q4H PRN for For Pain, (Reported) Discontinued Reason: Pt stopped taking med Oxycodone Hcl/Acetaminophen 10-325 Mg Tablet (Percocet 10-325 Mg Tablet*), 1 TAB ORAL Q6H PRN for For Pain Discontinued Reason: Pt stopped taking med Patient History Healthcare decision maker Resuscitation status Full Code Advanced Directive on File Past Medical/Surgical History Past Medical/Surgical History: (1) Herniated disc, cervical Review of Systems All Other Systems: negative except mentioned in HPI Physical Exam General Appearance: WD/WN, no apparent distress Lines, tubes and drains: peripheral HEENT: normocephalic, atraumatic Neck: non-tender, normal alignment Respiratory/Chest: chest wall non-tender, lungs clear Cardiovascular/Chest: normal peripheral pulses, regular rhythm Abdomen: normal bowel sounds, non tender Genitourinary/Rectal: normal genital exam, normal rectal exam Extremities: normal range of motion, non-tender Skin Exam: normal pigmentation, cyanotic, other - surgical scar on back, with some redness. Neurologic: regrader II-XII grossly normal, no motor/sensory deficits Last 24 Hour Vital Signs Date Time Temp Pulse Resp B/P (MAP) Pulse Ox O2 Delivery O2 Flow Rate FiO2 08/15/18 11:19 99.5 08/15/18 10:31 99.5 08/15/18 08:19 Room Air 08/15/18 08:00 99.5 88 20 114/79 (91) 96 99.5 08/15/18 07:41 98.4 08/15/18 04:04 98.4 87 18 135/88 (104) 99 98.4 08/15/18 03:49 98.8 08/15/18 00:04 98.8 08/14/18 21:05 Room Air 08/14/18 20:17 98.8 08/14/18 20:00 98.6 98 18 138/80 (99) 98 98.6 08/14/18 16:10 98.8 08/14/18 16:00 98.3 92 18 127/86 (100) 98 98.3 Intake and Output 08/14/18 08/15/18 19:00 07:00 Intake Total 985.0 ml 943.3 ml Balance 985.0 ml 943.3 ml Intake Oral 600 ml 400 ml IV Total 385.0 ml 543.3 ml # Voids 4 3 # Bowel Movements 1 Laboratory Tests Test 08/15/18 01:32 08/15/18 01:35 Erythrocyte Sedimentation Rate 50 MM/HR (0-20) H C-Reactive Protein, Quantitative 9.5 mg/dL (0.00-0.90) H White Blood Count 10.4 K/UL (4.8-10.8) Red Blood Count 4.93 M/UL (4.20-5.40) Hemoglobin 14.9 G/DL (12.0-16.0) Hematocrit 43.4 % (37.0-47.0) Mean Corpuscular Volume 88 FL (80-99) Mean Corpuscular Hemoglobin 30.1 PG (27.0-31.0) Mean Corpuscular Hemoglobin Concent 34.3 G/DL (32.0-36.0) Red Cell Distribution Width 13.0 % (11.6-14.8) Platelet Count 308 K/UL (150-450) Mean Platelet Volume 8.8 FL (6.5-10.1) Neutrophils (%) (Auto) 60.2 % (45.0-75.0) Lymphocytes (%) (Auto) 25.5 % (20.0-45.0) Monocytes (%) (Auto) 8.0 % (1.0-10.0) Eosinophils (%) (Auto) 5.1 % (0.0-3.0) H Basophils (%) (Auto) 1.2 % (0.0-2.0) Sodium Level 141 MMOL/L (136-145) Potassium Level 3.7 MMOL/L (3.5-5.1) Chloride Level 102 MMOL/L (98-107) Carbon Dioxide Level 29 MMOL/L (21-32) Anion Gap 10 mmol/L (5-15) Blood Urea Nitrogen 7 mg/dL (7-18) Creatinine 0.8 MG/DL (0.55-1.30) Estimat Glomerular Filtration Rate > 60 mL/min (>60) Glucose Level 111 MG/DL (74-106) H Calcium Level 9.1 MG/DL (8.5-10.1) Total Bilirubin 0.2 MG/DL (0.2-1.0) Aspartate Amino Transf (AST/SGOT) 16 U/L (15-37) Alanine Aminotransferase (ALT/SGPT) 34 U/L (12-78) Alkaline Phosphatase 83 U/L (46-116) Total Protein 8.2 G/DL (6.4-8.2) Albumin 3.1 G/DL (3.4-5.0) L Globulin 5.1 g/dL Albumin/Globulin Ratio 0.6 (1.0-2.7) L Vancomycin Level Trough 10.0 ug/mL (5.0-12.0) Height (Feet): 5 Height (Inches): 6.00 Weight (Pounds): 210 Medications Current Medications Medications (Trade) Dose Ordered Sig/Zeinab Route PRN Reason Start Time Stop Time Status Last Admin Dose Admin Acetaminophen (Tylenol) 650 mg Q4H PRN ORAL T>100.5 08/14/18 07:30 09/13/18 07:29 Albuterol/ Ipratropium (Albuterol/ Ipratropium) 3 ml Q4H PRN HHN Shortness of Breath 08/14/18 07:30 08/19/18 07:29 Cefepime HCl 2 gm/ Dextrose 110 ml @ 220 mls/hr EVERY 12 HOURS IV 08/14/18 09:00 08/21/18 08:59 08/15/18 08:29 Dextrose (Dextrose 50%) 25 ml Q30M PRN IV hypoglycemia 08/14/18 07:30 09/13/18 07:29 Dextrose (Dextrose 50%) 50 ml Q30M PRN IV hypoglycemia 08/14/18 07:30 09/13/18 07:29 Heparin Sodium (Porcine) (Heparin 5000 units/ml) 5,000 units EVERY 12 HOURS SUBQ 08/14/18 09:00 09/13/18 08:59 08/15/18 08:34 Iopamidol (Isovue-300 100ml) 100 ml NOW PRN INJ Radiology Procedure 08/13/18 23:15 08/15/18 23:01 Morphine Sulfate (Morphine Sulfate) 4 mg Q3H PRN IVP Severe Pain (Pain Scale 7-10) 08/14/18 19:00 08/21/18 18:59 08/15/18 10:31 Nitroglycerin (Ntg) 0.4 mg Q5MIN X 3 DOSES PRN SL Prn Chest Pain 08/14/18 07:30 09/13/18 07:29 Ondansetron HCl (Zofran) 4 mg Q6H PRN IVP Nausea & Vomiting 08/14/18 07:30 09/13/18 07:29 Polyethylene Glycol (Miralax) 17 gm DAILYPRN PRN ORAL Constipation 08/14/18 07:30 09/13/18 07:29 08/14/18 18:39 Temazepam (Restoril) 15 mg HSPRN PRN ORAL Insomnia 08/14/18 21:00 08/21/18 20:59 Vancomycin HCl (Vanco rx to dose) 1 ea DAILY PRN MISC . 08/14/18 07:45 09/13/18 07:44 Vancomycin HCl/ Dextrose 250 ml @ 167 mls/hr Q8H IVPB 08/15/18 04:00 08/20/18 03:59 08/15/18 11:42 Assessment/Plan Problem List: (1) Herniated disc, cervical ICD Codes: M50.20 - Other cervical disc displacement, unspecified cervical region SNOMED: 276181921, [id number] (2) Post op infection ICD Codes: T81.4XXA - Infection following a procedure, initial encounter SNOMED: 38690216 Qualifiers: Qualified Codes: T81.4XXA - Infection following a procedure, initial encounter Assessment/Plan wound care IV abx surgical evaluation Jasmyn Park MD Aug 15, 2018 12:45
--- NOTE | 2018-08-15 15:09 | Diagnostic Imaging Report ---
APPROVED REPORT CPT Code: 02759 Present Symptoms Comments: R/O DVT BILATERAL: Imaging reveals a patent deep venous system bilaterally. There is no evidence of thrombus within the femoral, popliteal or tibial segments. The greater saphenous veins are also within normal limits. Doppler indicates normal spontaneous flow within these segments.
--- NOTE | 2018-08-15 15:11 | Anethesia Preoperative Eval ---
Anesthesia Pre-op PMH/ROS General Date of Evaluation: Aug 15, 2018 Time of Evaluation: 16:15 Anesthesiologist: Parish ASA Score: ASA 1 Mallampati Score Class I : Soft palate, uvula, fauces, pillars visible Class II: Soft palate, uvula, fauces visible Class III: Soft palate, base of uvula visible Class IV: Only hard plate visible Mallampati Classification: Class II Surgeon: Shannan Diagnosis: Post operative surgical wound infection Surgical Procedure: I & D posterior cervical incisional wound Allergies: Coded Allergies: ASPIRIN (Verified Allergy, Unknown, 09/28/13) Nut Tree (Verified Allergy, Unknown, 05/17/18) Past Medical History Cardiovascular: Denies: HTN, CAD, [place], valve dz, arrhythmia, other Pulmonary: Denies: asthma, COPD, KELIN, other Gastrointestinal/Genitourinary: Denies: GERD, CRI, ESRD, other Neurologic/Psychiatric: Denies: dementia, CVA, depression/anxiety, TIA, other Endocrine: Denies: DM, hypothyroidism, steroids, other HEENT: Denies: cataract (L), cataract (R), glaucoma, TORRES MARTINEZ (L), TORRES MARTINEZ (R), other Hematology/Immune: Denies: anemia, DVT, bleeding disorder, other Musculoskeletal/Integumentary: Denies: OA, RA, DJD, DDD, edema, other PMH Narrative: Moderate obesity PSxH Narrative: Posterior cervical discectomy Anesthesia Pre-op Phys. Exam Physician Exam Last Vital Signs Date Time Temp Pulse Resp B/P (MAP) Pulse Ox O2 Delivery O2 Flow Rate FiO2 08/15/18 15:01 97.8 08/15/18 12:00 76 20 122/81 (95) 08/15/18 08:19 Room Air 08/15/18 08:00 96 Constitutional: NAD Neurologic: CN 2-12 intact Cardiovascular: RRR, no M/R/G Respiratory: CTA Gastrointestinal: S/NT/ND Airway Exam Mallampati Score: Class II MO: full ROM: full Teeth: intact Anesthesia Pre-op A/P Labs Hematology Test 08/15/18 01:32 08/15/18 01:35 Erythrocyte Sedimentation Rate 50 MM/HR (0-20) H White Blood Count 10.4 K/UL (4.8-10.8) Red Blood Count 4.93 M/UL (4.20-5.40) Hemoglobin 14.9 G/DL (12.0-16.0) Hematocrit 43.4 % (37.0-47.0) Mean Corpuscular Volume 88 FL (80-99) Mean Corpuscular Hemoglobin 30.1 PG (27.0-31.0) Mean Corpuscular Hemoglobin Concent 34.3 G/DL (32.0-36.0) Red Cell Distribution Width 13.0 % (11.6-14.8) Platelet Count 308 K/UL (150-450) Mean Platelet Volume 8.8 FL (6.5-10.1) Neutrophils (%) (Auto) 60.2 % (45.0-75.0) Lymphocytes (%) (Auto) 25.5 % (20.0-45.0) Monocytes (%) (Auto) 8.0 % (1.0-10.0) Eosinophils (%) (Auto) 5.1 % (0.0-3.0) H Basophils (%) (Auto) 1.2 % (0.0-2.0) Chemistry Test 08/15/18 01:32 08/15/18 01:35 C-Reactive Protein, Quantitative 9.5 mg/dL (0.00-0.90) H Sodium Level 141 MMOL/L (136-145) Potassium Level 3.7 MMOL/L (3.5-5.1) Chloride Level 102 MMOL/L (98-107) Carbon Dioxide Level 29 MMOL/L (21-32) Anion Gap 10 mmol/L (5-15) Blood Urea Nitrogen 7 mg/dL (7-18) Creatinine 0.8 MG/DL (0.55-1.30) Estimat Glomerular Filtration Rate > 60 mL/min (>60) Glucose Level 111 MG/DL (74-106) H Calcium Level 9.1 MG/DL (8.5-10.1) Total Bilirubin 0.2 MG/DL (0.2-1.0) Aspartate Amino Transf (AST/SGOT) 16 U/L (15-37) Alanine Aminotransferase (ALT/SGPT) 34 U/L (12-78) Alkaline Phosphatase 83 U/L (46-116) Total Protein 8.2 G/DL (6.4-8.2) Albumin 3.1 G/DL (3.4-5.0) L Globulin 5.1 g/dL Albumin/Globulin Ratio 0.6 (1.0-2.7) L Risk Assessment & Plan Assessment: Healthy female Plan: As per Dr. Campbell, there is no current drainage from incision. Tomorrow's surgery is cancelled. Status Change Before Surgery: Yes - Surgery is cancelled as per Dr. Campbell. Ace Lugo MD Aug 15, 2018 15:11
[2018-08-15 16:00] VITALS: BP 113/73
--- NOTE | 2018-08-15 16:35 | Consultation ---
Consult Note Consult Note full note dictated Assessment/Plan abx per ID. Hold surgery at this time. if drainage recurs, then plan i&d. Chris Campbell MD Aug 15, 2018 16:35
--- NOTE | 2018-08-15 18:08 | Diagnostic Imaging Report ---
Indication: Wound drainage and fever, recent cervical spine surgery. Technique: Spiral acquisitions obtained through the cervical spine. No IV contrast utilized. Multiplanar reconstructions were generated. Total dose length product 446.27 mGycm. CTDIvol(s) 21.88 mGy. Dose reduction achieved using automated exposure control. Comparison: Contrast CT neck dated 08/13/2018 Findings: Again demonstrated is evidence of anterior cervical fusion at C5-C7 with disc spacers. Prior imaging indicates that this was performed on 08/03/2017. The disc spaces appear well aligned and the screws appear entirely intraosseous. There is posterior fusion hardware seen bridging the C5 and C7 pedicles bilaterally. The right C5 pedicle screw protrudes just a few millimeters beyond the margin of the pedicle and the right C7 screw appears to protrude just a few millimeters beyond the edge of the pedicle. The other screws are entirely intrapedicular. Evaluation of the spinal canal in this area is limited due to streak artifact from the hardware. A single residual bubble of gas is seen in the prevertebral soft tissues anterior to C1, also demonstrated on the prior study, decreased currently. Previously demonstrated prevertebral edema has improved. Gas bubbles are seen within the soft tissues posterior and to the left of the C2 and C3 spinous processes. There is edema of the paraspinous musculature extending from C2 to about C5. No definite discrete abscess collection, but evaluation for such is limited in the absence of IV contrast administration. Although difficult to compare due to the different exam techniques, the amount of paraspinous fluid is probably similar to the previous exam. Also demonstrated is a collection of fluid in the subcutaneous fat deep to the incision. This measures 2 cm AP by 1.8 cm transverse by about 7 cm craniocaudad and is probably not significantly changed. The gas bubbles seen within this on the prior study is no longer evident There is reversal of the normal cervical lordosis. Otherwise normal bony alignment. At C1-C4, no definite significant disc bulge or protrusion, spinal stenosis, or neural foraminal narrowing. The visualized upper aerodigestive tract appears unremarkable. Impression: Postsurgical changes of C5-C7, as described, with surgical hardware appearing well aligned. Gas bubbles and edema in the paraspinous musculature, consistent with postsurgical change. No definite collection to suggest abscess but evaluation for such is limited in the absence of IV contrast. Fluid collection in the subcutaneous fat deep to the incision. Although probably routine postsurgical incisional collection, abscess not completely excludable, particularly in the absence of IV contrast administration. Note, however, that the earlier study did not demonstrate any rim enhancement, making abscess less likely Other findings as noted Findings previously discussed by phone with Dr. Campbell The CT scanner at [facility] is accredited by the [employer] and the scans are performed using protocols designed to limit radiation exposure to as low as reasonably achievable to attain images of sufficient resolution adequate for diagnostic evaluation.
[2018-08-15 20:38] VITALS: BP 121/74
[2018-08-16 00:06] VITALS: BP 126/70
[2018-08-16] MEDS: Morphine Sulfate 4mg/ml Inj (IV USE ONLY) IVP PRN ×7 (00:22→21:07)
[2018-08-16 03:26] LABS: BASOPHILS % (AUTO) 0.9 % (0.0-2.0); EOSINOPHILS % (AUTO) 5.5 % (0.0-3.0); HEMATOCRIT 41.2 % (37.0-47.0); HEMOGLOBIN 13.8 G/DL (12.0-16.0); LYMPHOCYTES % (AUTO) 27.6 % (20.0-45.0); MEAN CORPUSCULAR VOLUME 88 FL (80-99); MONOCYTES % (AUTO) 5.2 % (1.0-10.0); NEUTROPHILS % (AUTO) 60.8 % (45.0-75.0); PLATELET COUNT 333 K/UL (150-450); RED BLOOD COUNT 4.68 M/UL (4.20-5.40); RED CELL DISTRIBUTION WIDTH 12.8 % (11.6-14.8)
[2018-08-16 03:39] LABS: ANION GAP 6 mmol/L (5-15); BLOOD UREA NITROGEN 9 mg/dL (7-18); CALCIUM 8.7 MG/DL (8.5-10.1); CARBON DIOXIDE 29 MMOL/L (21-32); CHLORIDE 104 MMOL/L (98-107); CREATININE 0.7 MG/DL (0.55-1.30); SODIUM 139 MMOL/L (136-145)
[2018-08-16] MEDS: Vancomycin 1250mg/D5W 250ml 250 ML IVPB SCH (04:00)
--- NOTE | 2018-08-16 04:15 | Consultation ---
DATE OF CONSULTATION: 08/15/2018 REASON FOR CONSULTATION: Neck wound drainage. HISTORY: The patient is a 43-year-old woman who underwent spine surgery with myself one week ago. The patient was discharged on Wednesday. She presented to the ER with new onset drainage from her neck wound. She presented to the ER twice. Initially, she did not have any fevers, but subsequently she developed a fever of 102 prior to coming to the ER second time. At that time due to the ongoing drainage, it was deemed necessary to admit her for IV antibiotics and monitoring. The patient indicates that initially she had significant drainage from the upper portion of the neck wound, which twice saturated her pillow. She initially did not have any fevers, but on initial admission, she had spiked fevers to 102. She denies any cough, any pain in her leg, or burning on urination. 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 She elected to proceed with the second surgery. She was deemed stable for discharge towards the end of last week, but unfortunately due to the drainage, presented back to the hospital. MEDICATIONS: Currently include clindamycin per ID. PAST SURGICAL HISTORY: As above. ALLERGIES: Aspirin. PHYSICAL EXAMINATION: GENERAL: The patient is pleasant and cooperative during the exam. MUSCULOSKELETAL: Examination of the upper extremities demonstrates no neurologic deficit. She does have a posterior neck dressing. The neck dressing was removed and there was noted to be zero drainage on the dressing. Earlier today, at or about 10 or 11 o'clock in the morning, Dr. Titus from infectious disease had removed the dressing and per nursing staff at that time, no drainage on the dressing. Apparently last night when she had the dressing removed, there was approximately a dime-sized area of drainage on the dressing. Currently, I am unable to express any fluid from her neck. There is no erythema or cellulitis. IMAGING: CT of the cervical spine was reviewed. Hardware is in good position. Fusion mass is in good position. DIAGNOSES: 1. Status post anterior cervical diskectomy and fusion, C5 through C7 with pseudarthrosis at both levels, status post posterior spinal fusion as well as right-sided C5-C6 foraminal decompression. 2. Postoperative wound dehiscence. PLAN: At this point, I have recommended monitoring the incision. She has minimal drainage at this time. Although she does have an elevation in her sedimentation rate and CRP, I suspect that this is stress reaction. We will monitor her temperatures, we will try and evaluate, and rule out for other sources of infection such as UTI, pulmonary source, DVT source. If her drainage remains minimal and has resolved within the next day or two, it would be appropriate to discharge her home with oral antibiotics. If on the other hand, she has recurrence of the drainage, an I and D would be appropriate. Plan was discussed in detail with Dr. Titus, Infectious Disease. Chris Romi Campbell DR: ARLET JOB#: [id number] CC:
[2018-08-16 04:18] VITALS: BP 122/76
[2018-08-16] MEDS: Vancomycin 1500mg IVPB SCH ×3 (05:31→21:06)
[2018-08-16 08:00] VITALS: BP 123/71
[2018-08-16] MEDS: Cefepime HCl 2 GM in D5W 110 ML IV SCH ×2 (08:10→21:16)
[2018-08-16] MEDS: Heparin 5000 units/ml inj SUBQ SCH ×2 (08:16→21:16)
--- NOTE | 2018-08-16 08:28 | Orthopedic Spine Progress Note ---
Ortho Spine - Progress Note Subjective Symptoms: c/o post-op neck pain, improved - as compared to pre-op Objective Vital Signs: Last 24 Hour Vital Signs Date Time Temp Pulse Resp B/P (MAP) Pulse Ox O2 Delivery O2 Flow Rate FiO2 08/16/18 08:10 98.2 08/16/18 04:18 98.2 82 16 122/76 (91) 97 98.2 08/16/18 00:06 97.9 96 20 126/70 (88) 97 97.9 08/15/18 21:05 97.6 08/15/18 21:00 Room Air 08/15/18 20:52 98 18 Room Air 21 08/15/18 20:38 97.6 98 19 121/74 (90) 98 97.6 08/15/18 16:00 99.0 81 20 113/73 (86) 97 99.0 08/15/18 15:01 97.8 08/15/18 12:00 97.8 76 20 122/81 (95) 97.8 08/15/18 10:31 99.5 I&O: Intake and Output 08/15/18 08/16/18 19:00 07:00 Intake Total 1160 ml 1140 ml Balance 1160 ml 1140 ml Intake Oral 800 ml 780 ml IV Total 360 ml 360 ml # Voids 3 3 Wound: clean, intact, other - no draiange Drains: none Neuro Status: normal Plan Plan: pain management, continue antibiotics Additional Comments: if no further drainage tomorrow, can dc home Chris Campbell MD Aug 16, 2018 08:28
[2018-08-16 12:00] VITALS: BP 121/77
--- NOTE | 2018-08-16 13:44 | Pulmonology Progress Note ---
Assessment/Plan Problems: (1) Herniated disc, cervical (2) Post op infection Assessment/Plan no fever wound care continue abx f/u surgeon and ID recommendations. Subjective ROS Limited/Unobtainable: No Constitutional: Reports: no symptoms HEENT: Repors: no symptoms Respiratory: Reports: no symptoms Allergies: Coded Allergies: ASPIRIN (Verified Allergy, Unknown, 09/28/13) Nut Tree (Verified Allergy, Unknown, 05/17/18) Objective Last 24 Hour Vital Signs Date Time Temp Pulse Resp B/P (MAP) Pulse Ox O2 Delivery O2 Flow Rate FiO2 08/16/18 12:41 98.2 08/16/18 12:11 98.2 08/16/18 12:00 98.2 84 18 121/77 (92) 96 98.2 08/16/18 08:46 Room Air 08/16/18 08:10 98.2 08/16/18 08:00 90 18 Room Air 21 08/16/18 08:00 98.6 83 20 123/71 (88) 99 98.6 08/16/18 04:18 98.2 82 16 122/76 (91) 97 98.2 08/16/18 00:06 97.9 96 20 126/70 (88) 97 97.9 08/15/18 21:00 Room Air 08/15/18 20:52 98 18 Room Air 21 08/15/18 20:38 97.6 98 19 121/74 (90) 98 97.6 08/15/18 16:00 99.0 81 20 113/73 (86) 97 99.0 08/15/18 15:01 97.8 Intake and Output 08/15/18 08/16/18 19:00 07:00 Intake Total 1160 ml 1140 ml Balance 1160 ml 1140 ml Intake Oral 800 ml 780 ml IV Total 360 ml 360 ml # Voids 3 3 General Appearance: WD/WN HEENT: normocephalic Respiratory/Chest: chest wall non-tender, lungs clear Cardiovascular: normal peripheral pulses, normal rate Abdomen: normal bowel sounds, soft, non tender Genitourinary: normal external genitalia Extremities: no cyanosis Skin: no ulcers Neurologic/Psychiatric: no motor/sensory deficits Lymphatic: no neck adenopathy Microbiology Date/Time Source Procedure Growth Status 08/14/18 01:20 Blood Blood Culture - Preliminary NO GROWTH AFTER 48 HOURS Resulted 08/14/18 01:05 Blood Blood Culture - Preliminary NO GROWTH AFTER 48 HOURS Resulted 08/16/18 07:30 Rectum Received Laboratory Tests 08/16/18 03:00: White Blood Count 12.0H, Red Blood Count 4.68, Hemoglobin 13.8, Hematocrit 41.2 , Mean Corpuscular Volume 88, Mean Corpuscular Hemoglobin 29.5, Mean Corpuscular Hemoglobin Concent 33.6, Red Cell Distribution Width 12.8, Platelet Count 333, Mean Platelet Volume 9.0, Neutrophils (%) (Auto) 60.8, Lymphocytes (% ) (Auto) 27.6, Monocytes (%) (Auto) 5.2, Eosinophils (%) (Auto) 5.5H, Basophils (%) (Auto) 0.9, Sodium Level 139, Potassium Level 4.0, Chloride Level 104, Carbon Dioxide Level 29, Anion Gap 6, Blood Urea Nitrogen 9, Creatinine 0.7, Estimat Glomerular Filtration Rate > 60, Glucose Level 143H, Calcium Level 8.7, Vancomycin Level Trough 12.2H Current Medications Medications (Trade) Dose Ordered Sig/Zeinab Route PRN Reason Start Time Stop Time Status Last Admin Dose Admin Acetaminophen (Tylenol) 650 mg Q4H PRN ORAL T>100.5 08/14/18 07:30 09/13/18 07:29 Albuterol/ Ipratropium (Albuterol/ Ipratropium) 3 ml Q4H PRN HHN Shortness of Breath 08/14/18 07:30 08/19/18 07:29 Cefepime HCl 2 gm/ Dextrose 110 ml @ 220 mls/hr EVERY 12 HOURS IV 08/14/18 09:00 08/21/18 08:59 08/16/18 08:10 Dextrose (Dextrose 50%) 25 ml Q30M PRN IV hypoglycemia 08/14/18 07:30 09/13/18 07:29 Dextrose (Dextrose 50%) 50 ml Q30M PRN IV hypoglycemia 08/14/18 07:30 09/13/18 07:29 Heparin Sodium (Porcine) (Heparin 5000 units/ml) 5,000 units EVERY 12 HOURS SUBQ 08/14/18 09:00 09/13/18 08:59 08/16/18 08:16 Morphine Sulfate (Morphine Sulfate) 4 mg Q3H PRN IVP Severe Pain (Pain Scale 7-10) 08/14/18 19:00 08/21/18 18:59 08/16/18 12:11 Nitroglycerin (Ntg) 0.4 mg Q5MIN X 3 DOSES PRN SL Prn Chest Pain 08/14/18 07:30 09/13/18 07:29 Ondansetron HCl (Zofran) 4 mg Q6H PRN IVP Nausea & Vomiting 08/14/18 07:30 09/13/18 07:29 Polyethylene Glycol (Miralax) 17 gm DAILYPRN PRN ORAL Constipation 08/14/18 07:30 09/13/18 07:29 08/14/18 18:39 Temazepam (Restoril) 15 mg HSPRN PRN ORAL Insomnia 08/14/18 21:00 08/21/18 20:59 Vancomycin HCl (Vanco rx to dose) 1 ea DAILY PRN MISC . 08/14/18 07:45 09/13/18 07:44 Vancomycin HCl/ Dextrose 250 ml @ 125 mls/hr Q8H IVPB 08/16/18 05:00 08/21/18 04:59 08/16/18 13:22 Jasmyn Park MD Aug 16, 2018 13:44
[2018-08-16 16:00] VITALS: BP 112/79
[2018-08-16] MEDS ORDERED: Miralax 17gm pkt ORAL PRN (16:30)
--- NOTE | 2018-08-16 17:58 | Infectious Diseases Prog Note ---
Assessment/Plan Assessment/Plan Full consult dictated: A) 1) s/p cervical spine surgery - fusion, laminectomy and foraminotomy 2) post-operative drainage and pain - no sig drainage presently on abx 3) ? wound infection/cellulitis/post-surgical infection vs post-operative changes P) 1) vancomycin and cefepime 2) if stable by tomorrow can change to oral bactrim plus keflex for one week , script written 3) wound culture if drainage noted 4) will follow Subjective Allergies: Coded Allergies: ASPIRIN (Verified Allergy, Unknown, 09/28/13) Nut Tree (Verified Allergy, Unknown, 05/17/18) Objective Vital Signs Last 24 Hour Vital Signs Date Time Temp Pulse Resp B/P (MAP) Pulse Ox O2 Delivery O2 Flow Rate FiO2 08/16/18 15:45 98.2 08/16/18 15:15 98.2 08/16/18 12:11 98.2 08/16/18 12:00 98.2 84 18 121/77 (92) 96 98.2 08/16/18 08:46 Room Air 08/16/18 08:10 98.2 08/16/18 08:00 90 18 Room Air 21 08/16/18 08:00 98.6 83 20 123/71 (88) 99 98.6 08/16/18 04:18 98.2 82 16 122/76 (91) 97 98.2 08/16/18 00:06 97.9 96 20 126/70 (88) 97 97.9 08/15/18 21:00 Room Air 08/15/18 20:52 98 18 Room Air 21 08/15/18 20:38 97.6 98 19 121/74 (90) 98 97.6 Height (Feet): 5 Height (Inches): 6.00 Weight (Pounds): 210 Microbiology Date/Time Source Procedure Growth Status 08/14/18 01:20 Blood Blood Culture - Preliminary NO GROWTH AFTER 48 HOURS Resulted 08/14/18 01:05 Blood Blood Culture - Preliminary NO GROWTH AFTER 48 HOURS Resulted 08/16/18 07:30 Rectum Received Laboratory Tests Test 08/16/18 03:00 White Blood Count 12.0 K/UL (4.8-10.8) H Red Blood Count 4.68 M/UL (4.20-5.40) Hemoglobin 13.8 G/DL (12.0-16.0) Hematocrit 41.2 % (37.0-47.0) Mean Corpuscular Volume 88 FL (80-99) Mean Corpuscular Hemoglobin 29.5 PG (27.0-31.0) Mean Corpuscular Hemoglobin Concent 33.6 G/DL (32.0-36.0) Red Cell Distribution Width 12.8 % (11.6-14.8) Platelet Count 333 K/UL (150-450) Mean Platelet Volume 9.0 FL (6.5-10.1) Neutrophils (%) (Auto) 60.8 % (45.0-75.0) Lymphocytes (%) (Auto) 27.6 % (20.0-45.0) Monocytes (%) (Auto) 5.2 % (1.0-10.0) Eosinophils (%) (Auto) 5.5 % (0.0-3.0) H Basophils (%) (Auto) 0.9 % (0.0-2.0) Sodium Level 139 MMOL/L (136-145) Potassium Level 4.0 MMOL/L (3.5-5.1) Chloride Level 104 MMOL/L (98-107) Carbon Dioxide Level 29 MMOL/L (21-32) Anion Gap 6 mmol/L (5-15) Blood Urea Nitrogen 9 mg/dL (7-18) Creatinine 0.7 MG/DL (0.55-1.30) Estimat Glomerular Filtration Rate > 60 mL/min (>60) Glucose Level 143 MG/DL (74-106) H Calcium Level 8.7 MG/DL (8.5-10.1) Vancomycin Level Trough 12.2 ug/mL (5.0-12.0) H Current Medications Medications (Trade) Dose Ordered Sig/Zeinab Route PRN Reason Start Time Stop Time Status Last Admin Dose Admin Acetaminophen (Tylenol) 650 mg Q4H PRN ORAL T>100.5 08/14/18 07:30 09/13/18 07:29 Albuterol/ Ipratropium (Albuterol/ Ipratropium) 3 ml Q4H PRN HHN Shortness of Breath 08/14/18 07:30 08/19/18 07:29 Cefepime HCl 2 gm/ Dextrose 110 ml @ 220 mls/hr EVERY 12 HOURS IV 08/14/18 09:00 08/21/18 08:59 08/16/18 08:10 Dextrose (Dextrose 50%) 25 ml Q30M PRN IV hypoglycemia 08/14/18 07:30 09/13/18 07:29 Dextrose (Dextrose 50%) 50 ml Q30M PRN IV hypoglycemia 08/14/18 07:30 09/13/18 07:29 Heparin Sodium (Porcine) (Heparin 5000 units/ml) 5,000 units EVERY 12 HOURS SUBQ 08/14/18 09:00 09/13/18 08:59 08/16/18 08:16 Morphine Sulfate (Morphine Sulfate) 4 mg Q3H PRN IVP Severe Pain (Pain Scale 7-10) 08/14/18 19:00 08/21/18 18:59 08/16/18 15:15 Nitroglycerin (Ntg) 0.4 mg Q5MIN X 3 DOSES PRN SL Prn Chest Pain 08/14/18 07:30 09/13/18 07:29 Ondansetron HCl (Zofran) 4 mg Q6H PRN IVP Nausea & Vomiting 08/14/18 07:30 09/13/18 07:29 Polyethylene Glycol (Miralax) 17 gm DAILY PRN ORAL Constipation 08/16/18 16:30 09/15/18 16:29 08/16/18 16:42 Temazepam (Restoril) 15 mg HSPRN PRN ORAL Insomnia 08/14/18 21:00 08/21/18 20:59 Vancomycin HCl (Vanco rx to dose) 1 ea DAILY PRN MISC . 08/14/18 07:45 09/13/18 07:44 Vancomycin HCl/ Dextrose 250 ml @ 125 mls/hr Q8H IVPB 08/16/18 05:00 08/21/18 04:59 08/16/18 13:22 Christian Titus MD Aug 16, 2018 17:58
[2018-08-16 20:00] VITALS: BP 110/65
[2018-08-17] VITALS: BP 112/75
[2018-08-17] MEDS: Morphine Sulfate 4mg/ml Inj (IV USE ONLY) IVP PRN ×4 (00:40→12:31)
--- NOTE | 2018-08-17 03:45 | Consultation ---
DATE OF CONSULTATION: 08/16/2018 CONSULTING PHYSICIAN: Christian Titus M.D. ATTENDING PHYSICIAN: Jasmyn Park M.D. REFERRING PHYSICIAN: Chris Campbell M.D. REASON FOR CONSULTATION: Possible postoperative neck wound infection and cellulitis. CHIEF COMPLAINT: Coming in to the hospital with neck pain and drainage, rule out postoperative infection. HISTORY OF PRESENT ILLNESS: This is a very pleasant 43-year-old female who has a history of spinal surgery approximately 1 week ago. The patient's surgery was a cervical fusion, laminectomy and foraminotomy. The patient developed drainage from her neck wound and fevers of up to 102. The patient presents to [facility] because of possibility of postoperative infection of the neck and cervical area. Infectious Disease consultation is requested for antibiotic management. I saw the patient yesterday and there is no significant drainage. She is currently on vancomycin and cefepime. Case was discussed with Dr. Campbell. Dr. Campbell is following the case also. Case was discussed with the patient. REVIEW OF SYSTEMS: GENERAL: As discussed earlier, she came in with fevers of up to 102 in the outpatient setting. HEAD AND NECK: She had drainage from the surgical site, it was significant drainage. No pussy drainage though that she could recall. She does have some neck/cervical discomfort. CARDIAC: No chest pain or palpitations. GASTROINTESTINAL: No nausea or diarrhea. GENITOURINARY: No dysuria or frequency. PULMONARY: No congestion of breath. SKIN: No new rash. NEUROLOGIC: No seizures. No neck stiffness. She has the neck discomfort, but not stiffness per se. She does have some neck pain. No headache or change in vision. PAST MEDICAL HISTORY: The patient has a past medical history of cervical spine fusion surgery, C5-C1 and also history of pseudoarthrosis, requiring posterior fusion instrumentation. Operative notes mention also foraminotomy and laminectomy. She has history of herniated discs. ALLERGIES: Include aspirins and tree nuts. FAMILY HISTORY: Noncontributory. SOCIAL HISTORY: Negative for smoking, alcohol, or drug abuse. MEDICATIONS: Upon the MAR, she is off all. MEDICATIONS: Upon reviewing the MAR, she is on the following medications. She is on vancomycin. She is on Restoril, morphine, heparin, cefepime, nitroglycerin, Zofran, acetaminophen, and albuterol treatments as needed. Outside medications are noted and reconciled. PHYSICAL EXAMINATION: VITAL SIGNS: T-max 99.6, presently temperature is 98.2; pulse rate is 84; respiratory rate 18; blood pressure 120/77; and saturation 96%. She had a maximum temperature of 102 in the outpatient setting. HEAD AND NECK: Oral exam, no thrush. Eye exam, no icterus. No JVD. Normocephalic. I reviewed the wound, there was some fullness at the incision site. However, I did not see any pussy drainage and seems like general was intact. The incision was intact. Maybe mild fullness and warmth, but no drainage noted yesterday or today. HEART: Regular. No obvious gallop or murmur ABDOMEN: Soft. Positive bowel sounds. Nontender. LUNGS: Clear bilaterally. No rhonchi or rales. SKIN: No rash. MUSCULOSKELETAL: No effusion. Legs are without cellulitis. GENITOURINARY: No Oneal. LINE SITES: Without phlebitis. NEUROLOGIC: Intact and nonfocal. Alert and oriented x3. LABORATORY DATA: UA was leukocyte esterase negative, it was essentially negative. Creatinine 0.7. White count 12.0, hemoglobin 13.8, sedimentation rate 50. There was no drainage to get wound culture. She has had a cervical spine CT, which showed postsurgical changes C5 through C7. Findings consistent with postsurgical changes. No definite collection to suggest abscess and also likely postsurgical incisional collection. ASSESSMENT AND PLAN: 1. The patient is status post cervical spine fusion surgery, which included laminectomy and foraminotomy. The patient has postsurgical drainage from the incision and wound. This sounds more serosanguineous. There is no pus mentioned per the patient. Rule out underlying wound infection and cellulitis versus postoperative changes. She did have fevers as an outpatient. Low-grade fevers here and mild leukocytosis. Continue vancomycin and cefepime. There is currently no drainage to culture. CT scan of the neck showed no evidence of fluid collection, mostly postoperative changes. Continue vancomycin and cefepime and if continues to improve and stable, consider oral antibiotics soon. Dr. Campbell is following closely to see if there is any indication for surgery, but we will observe on antibiotics for now. Case communicated and discussed with Dr. Campbell. Continue vancomycin and cefepime and if stable, consider Bactrim and Keflex orally as an outpatient for another week to complete approximately 10-day course of antibiotics. However, she also needs close monitoring in the outpatient setting. 2. The patient is status post cervical spine fusion surgery, laminectomy and foraminotomy. 3. The patient has a history of herniated disk. 4. Pain management per Surgery and Primary. 5. Wound care per Dr. Campbell. 6. Allergies, aspirin and nitrate. 7. Family history noncontributory. 8. Social history negative. 9. Case was discussed with RN. 10. Continue treatment per primary consultants. Christian Titus M.D. DR: ELIZABETH JOB#: [id number] CC:
[2018-08-17 04:00] VITALS: BP 140/88
[2018-08-17] MEDS: Vancomycin 1500mg IVPB SCH (04:54)
[2018-08-17 05:08] LABS: BASOPHILS % (AUTO) 1.2 % (0.0-2.0); EOSINOPHILS % (AUTO) 4.5 % (0.0-3.0); HEMATOCRIT 41.8 % (37.0-47.0); HEMOGLOBIN 13.7 G/DL (12.0-16.0); MEAN CORPUSCULAR VOLUME 88 FL (80-99); MONOCYTES % (AUTO) 6.3 % (1.0-10.0); PLATELET COUNT 351 K/UL (150-450); RED BLOOD COUNT 4.74 M/UL (4.20-5.40); WHITE BLOOD COUNT 11.3 K/UL (4.8-10.8)
[2018-08-17 05:29] LABS: ANION GAP 6 mmol/L (5-15); BLOOD UREA NITROGEN 12 mg/dL (7-18); CARBON DIOXIDE 29 MMOL/L (21-32); CHLORIDE 103 MMOL/L (98-107); CREATININE 0.8 MG/DL (0.55-1.30); POTASSIUM 4.1 MMOL/L (3.5-5.1); SODIUM 138 MMOL/L (136-145)
[2018-08-17 08:00] VITALS: BP 105/88
[2018-08-17] MEDS ORDERED: Vancomycin 1gm/D5W 275ml IVPB SCH ×2 (08:00)
[2018-08-17] MEDS: Cefepime HCl 2 GM in D5W 110 ML IV SCH (08:20)
[2018-08-17] MEDS: Heparin 5000 units/ml inj SUBQ SCH (08:33)
[2018-08-17 12:00] VITALS: BP 102/69
--- NOTE | 2018-08-17 14:12 | Pulmonology Progress Note ---
Assessment/Plan Problems: (1) Herniated disc, cervical (2) Post op infection Assessment/Plan improving no fever wound care continue abx f/u surgeon and ID recommendations. Subjective ROS Limited/Unobtainable: No Constitutional: Reports: no symptoms HEENT: Repors: no symptoms Respiratory: Reports: no symptoms Allergies: Coded Allergies: ASPIRIN (Verified Allergy, Unknown, 09/28/13) Nut Tree (Verified Allergy, Unknown, 05/17/18) Objective Last 24 Hour Vital Signs Date Time Temp Pulse Resp B/P (MAP) Pulse Ox O2 Delivery O2 Flow Rate FiO2 08/17/18 12:00 98.0 80 19 102/69 (80) 98 98.0 08/17/18 09:00 Room Air 08/17/18 08:00 97.8 88 20 105/88 (94) 98 97.8 08/17/18 07:25 74 16 Room Air 21 08/17/18 04:00 98.0 87 18 140/88 (105) 98 98.0 08/17/18 00:00 97.9 84 18 112/75 (87) 99 97.9 08/16/18 21:00 Room Air 08/16/18 20:00 98.3 86 19 110/65 (80) 99 98.3 08/16/18 19:41 80 18 Room Air 21 08/16/18 18:46 98.2 08/16/18 18:16 98.2 08/16/18 16:00 98.3 78 20 112/79 (90) 96 98.3 08/16/18 15:15 98.2 Intake and Output 08/16/18 08/17/18 19:00 07:00 Intake Total 600 ml Output Total 260 ml Balance -260 ml 600 ml Intake Oral 600 ml Output Urine Total 260 ml # Voids 4 1 General Appearance: cachetic HEENT: normocephalic, atraumatic, anicteric Respiratory/Chest: chest wall non-tender, lungs clear Breasts: no masses Cardiovascular: normal peripheral pulses, normal rate Abdomen: normal bowel sounds, soft, non tender Genitourinary: normal external genitalia Skin: no rash Microbiology Date/Time Source Procedure Growth Status 08/16/18 07:30 Rectum Received Laboratory Tests 08/17/18 04:30: White Blood Count 11.3H, Red Blood Count 4.74, Hemoglobin 13.7, Hematocrit 41.8 , Mean Corpuscular Volume 88, Mean Corpuscular Hemoglobin 28.8, Mean Corpuscular Hemoglobin Concent 32.7, Red Cell Distribution Width 13.0, Platelet Count 351, Mean Platelet Volume 8.1, Neutrophils (%) (Auto) 62.0, Lymphocytes (% ) (Auto) 26.0, Monocytes (%) (Auto) 6.3, Eosinophils (%) (Auto) 4.5H, Basophils (%) (Auto) 1.2, Sodium Level 138, Potassium Level 4.1, Chloride Level 103, Carbon Dioxide Level 29, Anion Gap 6, Blood Urea Nitrogen 12, Creatinine 0.8, Estimat Glomerular Filtration Rate > 60, Glucose Level 121H, Calcium Level 9.0, Vancomycin Level Trough 20.3H Current Medications Medications (Trade) Dose Ordered Sig/Zeinab Route PRN Reason Start Time Stop Time Status Last Admin Dose Admin Acetaminophen (Tylenol) 650 mg Q4H PRN ORAL T>100.5 08/14/18 07:30 09/13/18 07:29 Albuterol/ Ipratropium (Albuterol/ Ipratropium) 3 ml Q4H PRN HHN Shortness of Breath 08/14/18 07:30 08/19/18 07:29 Cefepime HCl 2 gm/ Dextrose 110 ml @ 220 mls/hr EVERY 12 HOURS IV 08/14/18 09:00 08/21/18 08:59 08/17/18 08:20 Dextrose (Dextrose 50%) 25 ml Q30M PRN IV hypoglycemia 08/14/18 07:30 09/13/18 07:29 Dextrose (Dextrose 50%) 50 ml Q30M PRN IV hypoglycemia 08/14/18 07:30 09/13/18 07:29 Heparin Sodium (Porcine) (Heparin 5000 units/ml) 5,000 units EVERY 12 HOURS SUBQ 08/14/18 09:00 09/13/18 08:59 08/16/18 21:16 Morphine Sulfate (Morphine Sulfate) 4 mg Q3H PRN IVP Severe Pain (Pain Scale 7-10) 08/14/18 19:00 08/21/18 18:59 08/17/18 12:31 Nitroglycerin (Ntg) 0.4 mg Q5MIN X 3 DOSES PRN SL Prn Chest Pain 08/14/18 07:30 10/30/18 07:29 Ondansetron HCl (Zofran) 4 mg Q6H PRN IVP Nausea & Vomiting 08/14/18 07:30 09/13/18 07:29 Polyethylene Glycol (Miralax) 17 gm DAILY PRN ORAL Constipation 08/16/18 16:30 09/15/18 16:29 08/16/18 16:42 Temazepam (Restoril) 15 mg HSPRN PRN ORAL Insomnia 08/14/18 21:00 08/21/18 20:59 Vancomycin HCl (Vanco rx to dose) 1 ea DAILY PRN MISC . 08/14/18 07:45 09/13/18 07:44 Vancomycin HCl/ Dextrose 250 ml @ 166.667 mls/hr Q8HR@0000,0800,1600 IVPB 08/17/18 16:00 08/22/18 15:59 Jasmyn Park MD Aug 17, 2018 14:12
[2018-08-17] MEDS ORDERED: BACTRIM-DS1 EA ORAL (14:54)
[2018-08-17] MEDS ORDERED: CEPHALEXIN500 MG ORAL (14:55)
[2018-08-17] MEDS ORDERED: Tubing IV Secondary IV ONE (15:44)
[2018-08-17] MEDS ORDERED: Vancomycin 1250mg/D5W 250ml IVPB SCH (16:00)
--- NOTE | 2018-08-18 10:06 | Discharge Summary ---
Discharge Summary Discharge Summary _ DATE OF ADMISSION: 08/14/2018 DATE OF DISCHARGE: 08/17/2018 CONSULTANTS: Dr. Christian Campbell BRIEF HOSPITAL COURSE: Patient is a 43-year-old female, with recent cervical spine surgery, presented to ED with chief complaint of wound drainage and fever. Wound drainage was serosanguineous in nature. She had drainage coming out from the neck wound and developed fever up to 102. She initially presented to ED today prior, but was discharged home on antibiotics. She presented back to ED due to fever of 102. On evaluation at ED, she was afebrile. Blood work showed normal counts. Venous duplex of lower extremity was negative for DVT. Cervical spine CT showed post surgical changes in C5-C7. There were gas bubbles and edema in the paraspinous musculature, consistent with post surgical changes. Fluid collection was noted in the subcutaneous fat deep to the incision. Due to high fever, there was concern for postop infection. She was then admitted for IV antibiotic management. She was seen by Dr. Campbell. CT cervical spine was reviewed. Hardware was in good position. Incision was monitored. Wound care was done. She was given morphine for pain management. ESR was elevated. ID was consulted. She was given vancomycin and cefepime. Wound was without further drainage. Unable to express any fluid from the wound. There was no erythema or cellulitis . There was no further fever. Blood culture did not isolate any growth. She was eventually cleared for discharge home to continue oral antibiotic for a week. FINAL DIAGNOSES: Postop infection Herniated cervical disc with recent cervical instrumentation DISPOSITION: Patient was discharged home. DISCHARGE MEDICATIONS: Refer to Discharge Medication List. DISCHARGE INSTRUCTIONS: Follow up after completion of antibiotics. I have been assigned to dictate discharge summary on this account, and I was not involved in the patient's management. Missy Silverman NP Aug 18, 2018 10:06
== END 2018-08-17 15:45 | disposition home or self-care (01) | DRG 721 ==
LOC: EMR 23:17 → 4E 08-14 01:20 → EDBEDREQ 08-14 01:32 → 3E 08-14 07:41
DX: T81.40XA Infection following a procedure, unspecified, initial encounter (principal); M50.20 Other cervical disc displacement, unspecified cervical region; B99.8 Other infectious disease; Z88.6 Allergy status to analgesic agent; Z91.018 Allergy to other foods; Z98.1 Arthrodesis status; Y83.8 Other surgical procedures as the cause of abnormal reaction of the patient, or of later complication, without mention of misadventure at the time of the procedure; Z53.8 Procedure and treatment not carried out for other reasons
CPT/HCPCS: 36415; 70491; 71045; 72125; 80048; 80053; 80202; 81003; 83605; 85025; 85610; 85651; 85730; 86140; 87040; 87070; 87081; 87205; 93970; 94664; 96365; 96368; 96375; 99285; J2405

== ENCOUNTER 2018-08-25 15:11 | Emergency (ER) | payer OTHER ==
[~2018-08-25] VITALS: Ht 167.6 cm; Wt 93.0 kg
[~2018-08-25 15:11] MED LIST changes: +BACTRIM-DS1 EA ORAL; +CEPHALEXIN500 MG ORAL
[2018-08-25 15:25] VITALS: BP 128/85
[2018-08-25] MEDS ORDERED: Morphine Sulfate 4mg/ml Inj (IV USE ONLY) IVP ONE (16:00)
[2018-08-25] MEDS ORDERED: Dextrose 5%/Lactated Ringer's 1,000 ML IV SCH (16:00)
--- NOTE | 2018-08-25 16:32 | Emergency Room Report ---
History of Present Illness General Chief Complaint: Neck Pain Source: Patient Present Illness HPI Patient is a 43-year-old female presented after increased neck discomfort. Patient had recent cervical spine surgery. She had been using a cervical collar but had had noticed worsening pain. Patient recently been started with antibiotics. The patient had a run out of her pain medications which had previously included Percocet.The patient had neck surgery with Dr. Campbell. She had recently been seen by Dr. Campbell and started on antibiotics. The patient had not been vomiting or having any diarrhea. She reported feeling somewhat lightheaded. She reported having increased pain to her neck. She denied any increased numbness or weakness to her extremities Allergies: Coded Allergies: ASPIRIN (Verified Allergy, Unknown, 09/28/13) Nut Tree (Verified Allergy, Unknown, 05/17/18) Patient History Past Medical History: see triage record Last Menstrual Period: partial hystrectomy Reviewed Nursing Documentation: PMH: Agreed; PSxH: Agreed Nursing Documentation-PMH Past Medical History: No History, Except For Hx Cardiac Problems: No Hx Cancer: No Hx Gastrointestinal Problems: No Hx Neurological Problems: No - 2 cervical spine fushions 07/2017 & 07/2018 Review of Systems All Other Systems: negative except mentioned in HPI Physical Exam Vital Signs Date Time Temp Pulse Resp B/P (MAP) Pulse Ox O2 Delivery O2 Flow Rate FiO2 08/25/18 15:17 98.9 111 16 128/85 97 Room Air 99.0 Sp02 EP Interpretation: reviewed, normal General Appearance: normal inspection, well appearing, alert, GCS 15, mild distress Head: atraumatic ENT: normal ENT inspection, hearing grossly normal, normal voice Neck: normal inspection, supple, no bony tend, limited range of motion, other - slight erythema to back of neck without drainage Respiratory: normal inspection, lungs clear, normal breath sounds, no respiratory distress, no retraction, no wheezing Cardiovascular #1: regular rate, rhythm, no edema Gastrointestinal: normal inspection, normal bowel sounds, non tender, soft, no guarding, no hernia Genitourinary: no CVA tenderness Musculoskeletal: normal inspection, back normal, normal range of motion Neurologic: normal inspection, alert, oriented x3, responsive, 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 Differential diagnosis included cellulitis, osteomyelitis, myocardial infarction, cervical fracture, arthritis, spondylolithises. Because of complexity of patient's case laboratory testing was ordered. The patient's wound does not appear to be the severely infected. Laboratory testing showed normal white blood count. The patient is currently on antibiotics. The patient was discussed with Dr. Campbell who will follow the patient in clinic tomorrow. Labs Test 08/25/18 16:15 White Blood Count 10.4 K/UL (4.8-10.8) Red Blood Count 5.23 M/UL (4.20-5.40) Hemoglobin 15.0 G/DL (12.0-16.0) Hematocrit 46.2 % (37.0-47.0) Mean Corpuscular Volume 88 FL (80-99) Mean Corpuscular Hemoglobin 28.7 PG (27.0-31.0) Mean Corpuscular Hemoglobin Concent 32.5 G/DL (32.0-36.0) Red Cell Distribution Width 13.2 % (11.6-14.8) Platelet Count 320 K/UL (150-450) Mean Platelet Volume 11.2 FL (6.5-10.1) Neutrophils (%) (Auto) 66.6 % (45.0-75.0) Lymphocytes (%) (Auto) 22.8 % (20.0-45.0) Monocytes (%) (Auto) 7.0 % (1.0-10.0) Eosinophils (%) (Auto) 2.7 % (0.0-3.0) Basophils (%) (Auto) 1.0 % (0.0-2.0) Urine Color T[place] Urine Appearance Clear Urine pH 7 (4.5-8.0) Urine Specific [place] 1.010 (1.005-1.035) Urine Protein Negative (NEGATIVE) Urine Glucose (UA) Negative (NEGATIVE) Urine Ketones Negative (NEGATIVE) Urine Blood Negative (NEGATIVE) Urine Nitrite Negative (NEGATIVE) Urine Bilirubin Negative (NEGATIVE) Urine Ictotest Negative (NEGATIVE) Urine Urobilinogen 1 MG/DL (0.0-1.0) Urine Leukocyte Esterase 1+ (NEGATIVE) Urine RBC 0 /HPF (0 - 2) Urine WBC 5-10 /HPF (0 - 2) Urine Squamous Epithelial Cells Many /LPF (NONE/OCC) Urine Bacteria Few /HPF (NONE) Sodium Level 138 MMOL/L (136-145) Potassium Level 4.1 MMOL/L (3.5-5.1) Chloride Level 103 MMOL/L (98-107) Carbon Dioxide Level 26 MMOL/L (21-32) Anion Gap 9 mmol/L (5-15) Blood Urea Nitrogen 12 mg/dL (7-18) Creatinine 0.8 MG/DL (0.55-1.30) Estimat Glomerular Filtration Rate > 60 mL/min (>60) Glucose Level 107 MG/DL (74-106) Calcium Level 9.0 MG/DL (8.5-10.1) Total Bilirubin 0.3 MG/DL (0.2-1.0) Aspartate Amino Transf (AST/SGOT) 22 U/L (15-37) Alanine Aminotransferase (ALT/SGPT) 41 U/L (12-78) Alkaline Phosphatase 79 U/L (46-116) Total Protein 8.3 G/DL (6.4-8.2) Albumin 3.7 G/DL (3.4-5.0) Globulin 4.6 g/dL Albumin/Globulin Ratio 0.8 (1.0-2.7) Last Vital Signs Date Time Temp Pulse Resp B/P (MAP) Pulse Ox O2 Delivery O2 Flow Rate FiO2 08/25/18 16:16 99.0 08/25/18 15:25 110 16 128/85 97 Room Air Status: improved Disposition: HOME, SELF-CARE Condition: Stable Scripts Oxycodone Hcl/Acetaminophen 10-325 Mg Tablet (PERCOCET 10-325 MG TABLET*) 1 Each Tablet 1 TAB ORAL Q4H PRN for For Pain, #20 TAB Prov: Terrence Barnes MD 08/25/18 Terrence Barnes MD Aug 25, 2018 16:32
[2018-08-25 16:33] LABS: EOSINOPHILS % (AUTO) 2.7 % (0.0-3.0); HEMATOCRIT 46.2 % (37.0-47.0); LYMPHOCYTES % (AUTO) 22.8 % (20.0-45.0); MEAN CORPUSCULAR VOLUME 88 FL (80-99); NEUTROPHILS % (AUTO) 66.6 % (45.0-75.0); PLATELET COUNT 320 K/UL (150-450); RED BLOOD COUNT 5.23 M/UL (4.20-5.40); RED CELL DISTRIBUTION WIDTH 13.2 % (11.6-14.8); WHITE BLOOD COUNT 10.4 K/UL (4.8-10.8)
[2018-08-25 16:55] LABS: APPEARANCE,URINE CLEAR; BILIRUBIN, URINE NEGATIVE (NEGATIVE); COLOR,URINE AMBER; GLUCOSE, URINE (UA) NEGATIVE (NEGATIVE); KETONES,URINE NEGATIVE (NEGATIVE); LEUKOCYTE ESTERASE ,URINE 1+ (NEGATIVE); NITRITE,URINE NEGATIVE (NEGATIVE); PH,URINE 7 (4.5-8.0); PROTEIN,URINE NEGATIVE (NEGATIVE); UROBILINOGEN,URINE 1 MG/DL (0.0-1.0)
[2018-08-25] MEDS ORDERED: PERCOCET 10-321 EACH ORAL (16:56)
[2018-08-25 17:01] LABS: ANION GAP 9 mmol/L (5-15); BLOOD UREA NITROGEN 12 mg/dL (7-18); CARBON DIOXIDE 26 MMOL/L (21-32); CHLORIDE 103 MMOL/L (98-107); CREATININE 0.8 MG/DL (0.55-1.30); POTASSIUM 4.1 MMOL/L (3.5-5.1); SODIUM 138 MMOL/L (136-145)
[2018-08-25 17:05] LABS: ALANINE AMINOTRANSFERASE 41 U/L (12-78); ALBUMIN 3.7 G/DL (3.4-5.0); ALBUMIN/GLOBULIN RATIO 0.8 (1.0-2.7); ALKALINE PHOSPHATASE 79 U/L (46-116); ASPARTATE AMINO TRANSFERASE 22 U/L (15-37); BILIRUBIN,TOTAL 0.3 MG/DL (0.2-1.0)
[2018-08-25 17:27] VITALS: BP 120/74
== END 2018-08-25 17:29 | disposition home or self-care (01) ==
LOC: EMR 17:05
DX: G89.18 Other acute postprocedural pain (principal); M54.2 Cervicalgia; Z88.6 Allergy status to analgesic agent; Z98.1 Arthrodesis status
CPT/HCPCS: 36415; 80053; 81001; 85025; 85651; 96365; 96375; 99284; J2270

== ENCOUNTER 2018-08-31 10:41 | Outpatient (CLI) | payer OTHER ==
[2018-08-31 11:19] LABS: BASOPHILS % (AUTO) 0.9 % (0.0-2.0); EOSINOPHILS % (AUTO) 4.4 % (0.0-3.0); HEMATOCRIT 45.6 % (37.0-47.0); HEMOGLOBIN 14.7 G/DL (12.0-16.0); LYMPHOCYTES % (AUTO) 42.1 % (20.0-45.0); MEAN CORPUSCULAR VOLUME 88 FL (80-99); MONOCYTES % (AUTO) 7.4 % (1.0-10.0); NEUTROPHILS % (AUTO) 45.1 % (45.0-75.0); PLATELET COUNT 291 K/UL (150-450); RED BLOOD COUNT 5.17 M/UL (4.20-5.40); RED CELL DISTRIBUTION WIDTH 13.8 % (11.6-14.8); WHITE BLOOD COUNT 7.3 K/UL (4.8-10.8)
== END 2018-08-31 12:41 | disposition home or self-care (01) ==
LOC: LAB 10:41
DX: M43.22 Fusion of spine, cervical region (principal)
CPT/HCPCS: 36415; 85025; 85651; 86140

== ENCOUNTER 2019-01-10 16:53 | Emergency (ER) | payer MEDICAID, OTHER ==
[~2019-01-10] VITALS: Ht 167.6 cm; Wt 88.5 kg
[2019-01-10 17:10] VITALS: BP 100/67
--- NOTE | 2019-01-10 17:10 | NUR ---
ED Nurse Note: pt walked in to ED due to flu like sx. pt c/o coughing, chest congestion and runny nose for last 4 days. respirations even and non-labored noted. breath sounds clear. AAO x4. skin warm to touch. no open wound noted. will wait for the further order.
[2019-01-10] MEDS ORDERED: Lidocaine 2% Visc 15ml soln ORAL ONE (18:00)
--- NOTE | 2019-01-10 18:03 | Emergency Room Report ---
History of Present Illness General Chief Complaint: Upper Respiratory Illness Source: Patient Present Illness HPI 43-year-old female patient presents the ER complaining of cough and flulike symptoms for the past 4 days. Reports sore throat during this time. Reports pain with swallowing. Reports cough with sputum. Denies hemoptysis. Denies chest pain. Denies history of heart attack or stroke. Denies recent travel. Denies calf pain. States been taking DayQuil, NyQuil, and other over-the- counter medications with mild relief of symptoms. Reports subjective fever at home, currently afebrile in ER. Reports generalized aches and pains. Denies dysuria, hematuria. Denies vomiting. Reports watery diarrhea during this time. Reports congestion during this time. Allergies: Coded Allergies: ASPIRIN (Verified Allergy, Unknown, 09/28/13) Nut Tree (Verified Allergy, Unknown, 05/17/18) Patient History Past Medical History: see triage record Reviewed Nursing Documentation: PMH: Agreed; PSxH: Agreed Nursing Documentation-PMH Past Medical History: No History, Except For Hx Cancer: No Hx Gastrointestinal Problems: No Hx Neurological Problems: No - 2 cervical spine fushions 07/2017 & 07/2018 Review of Systems All Other Systems: negative except mentioned in HPI Physical Exam Vital Signs Date Time Temp Pulse Resp B/P (MAP) Pulse Ox O2 Delivery O2 Flow Rate FiO2 01/10/19 17:03 98.4 88 16 100/67 96 Room Air Sp02 EP Interpretation: reviewed, normal General Appearance: well appearing, no apparent distress, alert, GCS 15, non- toxic Head: normocephalic, atraumatic Eyes: bilateral eye normal inspection, bilateral eye PERRL ENT: hearing grossly normal, normal pharynx, no angioedema, normal voice, TMs + canals normal, uvula midline, moist mucus membranes, nasal congestion, pharyngeal erythema, other - Uvula midline, no exudates Neck: full range of motion, no meningismus, no bony tend Respiratory: lungs clear, normal breath sounds, no rhonchi, no respiratory distress, no accessory muscle use, no wheezing, speaking full sentences Cardiovascular #1: regular rate, rhythm, no edema Gastrointestinal: non tender, soft, no mass, non-distended, no guarding, no rebound Genitourinary: no CVA tenderness Musculoskeletal: back normal, digits/nails normal, gait/station normal, normal range of motion, non-tender, no calf tenderness, Jose's Sign negative Neurologic: alert, oriented x3, responsive, motor strength/tone normal, sensory intact Psychiatric: mood/affect normal Skin: no rash, normal turgor Lymphatic: no adenopathy Medical Decision Making PA Attestation Dr. Ching is my supervising Physician whom patient management has been discussed with. Diagnostic Impression: Primary Impression: Influenza-like symptoms ER Course Pt presents to ED c/o cough, congestion, sore throat, diarrhea. DDX considered but are not limited to influenza, viral URI, pneumonia, strep throat, rhinitis, sinusitis, otitis media, otitis externa. VITAL SIGNS are WNL, patient is afebrile. ER COURSE: Provide with pain medication and viscous lidocaine in the ER. Lungs clear to auscultation, no wheezes, rhonci or rales. patient afebrile. Chest X-ray shows no acute disease per the preliminary reading. Low suspicion for PNA, does not require abx tx at this time. no tonsillar exudates, no pharyngeal erythema, history of cough, no fever, no stridor, uvula midline, low suspicion for peritonsillar abscess or strep pharyngitis. Likely viral etiology of symptoms. Symptomatic treatment. drink plenty of fluids. Salt water gargles for sore throat. Followup with PCP for further treatment and/or referral as needed. No abdominal TTP. No fever, no blood in stool, no recent travel or hospitalizations, does not require abx treatment at this time. No signs of dehydration, moist mucus membranes, cap refil <2seconds, normal skin turgor. Patient reports eating and drinking normally. ER precautions given. Drink plenty of fluids. DISCHARGE: At this time pt is stable for d/c to home. Patient is resting comfortably, in no acute distress, nontoxic appearing. Patient to take medications as instructed Will provide with patient care instructions and any necessary prescriptions. Care plan and follow-up instructions provided. Patient instructed to follow-up with primary care provider in 3 - 5 days. Patient questions asked and answered. Patient reports understanding and agreement to treatment plan. ER precautions given. Patient instructed to return to ER immediately for any new or worsening of symptoms including but not limited to increasing SOB, persistent fever, intractable vomiting. - Please note that this Emergency Department Report was dictated using [employer] driver technology software, occasionally this can lead to erroneous entry secondary to interpretation by the dictation equipment. Chest X-Ray Diagnostic Results Chest X-Ray Diagnostic Results : Chest X-Ray Ordered: Yes # of Views/Limited/Complete: 1 View Indication: Chest Pain EP Interpretation: Yes PA Xray: Interpretation reviewed, by supervising MD, and agrees with findings. Interpretation: no consolidation, no effusion, no pneumothorax, no acute cardiopulmonary disease Impression: No acute disease EDWIN GaleasibYsabel Mojica PA-C Last Vital Signs Date Time Temp Pulse Resp B/P (MAP) Pulse Ox O2 Delivery O2 Flow Rate FiO2 01/10/19 17:10 88 16 Room Air 01/10/19 17:10 98.4 100/67 96 Status: improved Disposition: HOME, SELF-CARE Condition: Stable Scripts Acetaminophen* (TYLENOL EXTRA STRENGTH*) 500 Mg Tablet 500 MG ORAL Q8H PRN for Prn Headache/Temp > 101, #30 TAB 0 Refills Prov: Sabas Mojica 01/10/19 Benzonatate* (TESSALON PERLE*) 100 Mg Capsule 100 MG ORAL THREE TIMES A DAY, #30 PERLE Prov: Sabas Mojica 01/10/19 Fluticasone Propionate (Flonase Allergy Relief) 9.9 Ml [place].susp 1 SPR NS BID for 5 Days, #9.9 ML Prov: Sabas Mojica 01/10/19 Referrals: [facility],REFERRING (PCP) Patient Instructions: Influenza, Adult, [id number] Additional Instructions: Followup with primary care provider in 3 -5 days. Salt water gargles Take Tylenol for pain and fever symptoms Drink plenty of water. Take medications as directed. Patient questions asked and answered. ER precautions given, patient instructed to return to ER immediately for any new or worsening of symptoms including but not limited to intractable vomiting, difficulty breathing, inability to eat. Sabas Mojica Jan 10, 2019 18:03
[2019-01-10] MEDS ORDERED: Acetaminophen 500mg (ES) tab ORAL ONE (18:15)
[2019-01-10] MEDS ORDERED: TYLENOL EXTRA500 MG ORAL (18:19)
[2019-01-10] MEDS ORDERED: FLONASE ALLERG9.9 ML NS (18:19)
[2019-01-10] MEDS ORDERED: TESSALON PERLE100 MG ORAL (18:19)
[2019-01-10 18:36] VITALS: BP 100/67
--- NOTE | 2019-01-10 18:40 | NUR ---
ER DISCHARGE NOTE: Patient is cleared to be discharged per ERMD, pt is aox4, on room air, with stable vital signs. pt was given dc and prescription instructions, pt was able to verbalize understanding, pt id band removed without complications. pt is able to ambulate with steady gait. pt took all belongings.
--- NOTE | 2019-01-11 11:01 | Diagnostic Imaging Report ---
Indication: Cough Comparison: 08/14/2018 A single view chest radiograph was obtained. Findings: Cardiomediastinal appearance is within normal limits for age. The lungs are clear. Pulmonary vascularity is appropriate. The diaphragmatic contour is smooth and costophrenic angles are sharp. No pleural effusions are identified. The bones are unremarkable. Impression: No acute findings
== END 2019-01-10 18:41 | disposition home or self-care (01) ==
LOC: EMR 17:40
DX: J11.1 Influenza due to unidentified influenza virus with other respiratory manifestations (principal)
CPT/HCPCS: 71045; 99283

== ENCOUNTER 2019-03-30 12:06 | Emergency (ER) | payer SELFPAY ==
[~2019-03-30] VITALS: Ht 167.6 cm; Wt 88.5 kg
[~2019-03-30 12:06] MED LIST changes: +FLONASE ALLERG9.9 ML NS; +TESSALON PERLE100 MG ORAL; +TYLENOL EXTRA500 MG ORAL
[2019-03-30 12:16] VITALS: BP 110/78
--- NOTE | 2019-03-30 12:20 | NUR ---
ED Nurse Note: Patient walked into ED c/o flu like symptoms since 03/27/19. patient reports she has been coughing, blood tinged mucus and generalized body aches. patient reports she has been taking mucinex at home. patient is alert awake x4 ambulatory, breathing unlabored and even.
--- NOTE | 2019-03-30 13:15 | Emergency Room Report ---
History of Present Illness General Chief Complaint: Flu Like Symptoms Source: Patient, Medical Record Present Illness HPI 43-year-old female with no medical problems, is not on any regular medications edges OCPs, comes ER with complaint of having few days history of cough congestion nasal discharges intermittently mixed with blood, denies leg pain, leg swelling, chest pain, abdominal pain, vomiting, diarrhea, urinary symptoms, does report frontal headache, no relief with Mucinex and [id number] meds. Eyes ear pain, recent travel, syncope, palpitations, any other symptoms but does report subjective fever. Allergies: Coded Allergies: ASPIRIN (Verified Allergy, Unknown, 09/28/13) Nut Tree (Verified Allergy, Unknown, 05/17/18) Patient History Past Medical History: see triage record Last Menstrual Period: hysterectomy Reviewed Nursing Documentation: PMH: Agreed; PSxH: Agreed Nursing Documentation-PMH Past Medical History: No History, Except For Hx Cancer: No Hx Gastrointestinal Problems: No Hx Neurological Problems: No - 2 cervical spine fushions 07/2017 & 07/2018 Review of Systems All Other Systems: negative except mentioned in HPI Physical Exam Vital Signs Date Time Temp Pulse Resp B/P (MAP) Pulse Ox O2 Delivery O2 Flow Rate FiO2 03/30/19 12:16 98.1 84 16 95 Room Air 03/30/19 12:16 110/78 Sp02 EP Interpretation: reviewed, normal General Appearance: no apparent distress, alert, non-toxic Head: normocephalic Eyes: bilateral eye normal inspection, bilateral eye PERRL, bilateral eye EOMI ENT: normal ENT inspection, hearing grossly normal, normal pharynx, no angioedema, normal voice, TMs + canals normal, moist mucus membranes, nasal congestion - Positive frontal sinus tenderness to percussion bilaterally Neck: normal inspection, full range of motion, supple, thyroid normal, no meningismus, supple/symm/no masses Respiratory: chest non-tender, lungs clear, normal breath sounds, chest symmetrical, palpation of chest normal Cardiovascular #1: normal peripheral pulses, regular rate, rhythm Cardiovascular #2: 2+ radial (R), 2+ radial (L) Gastrointestinal: normal inspection, non tender, soft, no mass, no guarding, no rebound Rectal: deferred Genitourinary: normal inspection, no CVA tenderness Musculoskeletal: back normal, gait/station normal, normal range of motion, non- tender, no calf tenderness, Jose's Sign negative Neurologic: alert, responsive, inspector precision III-XII nml as tested, motor strength/tone normal, sensory intact, speech normal Psychiatric: judgement/insight normal, memory normal, mood/affect normal Skin: normal color, no rash, warm/dry, normal turgor Lymphatic: no adenopathy Medical Decision Making Diagnostic Impression: Primary Impression: Sinusitis ER Course Patient with unremarkable EKG, unremarkable chest x-ray, but signs and consistent with sinusitis, despite her blood-tinged sputum production I do not suspect PE, she is PERC rule negative, will discharge with augmentin, intranasal steroids, PMD f/u at [facility] EKG Diagnostic Results EKG Time: 12:36 EP Interpretation: no stemi Rate: normal Rhythm: NSR ST Segments: no acute changes ASA given to the pt in ED: No Rhythm Strip Diag. Results Rhythm Strip Time: 13:14 EP Interpretation: yes Rate: 70 Rhythm: NSR, no PVC's, no ectopy, other - no [id number] Chest X-Ray Diagnostic Results Chest X-Ray Diagnostic Results : Chest X-Ray Ordered: Yes # of Views/Limited/Complete: 1 View Indication: Other - cough EP Interpretation: Yes Interpretation: no consolidation, no effusion, no pneumothorax, no acute cardiopulmonary disease Impression: No acute disease Electronically Signed by: Gerardo Patel MD Last Vital Signs Date Time Temp Pulse Resp B/P (MAP) Pulse Ox O2 Delivery O2 Flow Rate FiO2 03/30/19 12:16 98.1 84 16 110/78 95 Room Air Disposition: HOME, SELF-CARE Condition: Stable Referrals: [facility]/,REFERRING (PCP) GERARDO PATEL M.D March 30, 2019 13:15
[2019-03-30] MEDS ORDERED: AUGMENTIN 875-1 EAC1 ORAL (13:17)
[2019-03-30] MEDS ORDERED: NASONEX17 GM NASAL (13:17)
[2019-03-30] MEDS ORDERED: IBUPROFEN600 MG ORAL (13:17)
--- NOTE | 2019-03-30 13:28 | NUR ---
Vreonika fagan in EDM - 03/30/19 at 1342 by [facility] ED Nurse Note: report given to LINDA MUÑIZ, endorsed all care to Linda RN. patient went up with MARY MCCONNELL with all of his belongings
[2019-03-30] MEDS ORDERED: Dexamethasone 4mg/ml vial IM ONE (13:30)
[2019-03-30 13:38] VITALS: BP 110/78
--- NOTE | 2019-03-30 13:38 | NUR ---
ER DISCHARGE NOTE: Patient is cleared to be discharged per ERMD DR PATEL, pt is aox4, on room air, with stable vital signs. pt was given dc and prescription instructions, pt was able to verbalize understanding, pt id band removed without complications. pt is able to ambulate with steady gait. pt took all belongings.
--- NOTE | 2019-03-30 14:24 | Diagnostic Imaging Report ---
Indication: Dyspnea Comparison: 01/10/2019 A single view chest radiograph was obtained. Findings: Cardiomediastinal appearance is within normal limits for age. The lungs are clear. Pulmonary vascularity is appropriate. The diaphragmatic contour is smooth and costophrenic angles are sharp. No pleural effusions are identified. The bones are unremarkable. Cervical fusion hardware noted. Impression: No acute findings
== END 2019-03-30 13:38 | disposition home or self-care (01) ==
LOC: EMR 12:55
DX: J32.9 Chronic sinusitis, unspecified (principal); Z88.6 Allergy status to analgesic agent; Z91.018 Allergy to other foods
CPT/HCPCS: 71045; 93005; 96372; 99283; J1100